=== PATIENT | female | born 1960 | race Caucasian/White ===

== ENCOUNTER 2017-01-06 16:51 | Observation (INO) ==
--- NOTE | 2017-01-06 17:17 | Emergency Department Note ---
Disposition Clinical Impression: Thyroid nodule Carotid stenosis Qualifiers: Laterality: bilateral Qualified Code(s): I65.23 - Occlusion and stenosis of bilateral carotid arteries TIA (transient ischemic attack) Qualifiers: Transient cerebral ischemia type: unspecified Qualified Code(s): G45.9 - Transient cerebral ischemic attack, unspecified Disposition: Admitted As Inpatient Condition: Good Referrals: Casey Rubio DO [Primary Care Provider] - Forms: ED Satisfaction Letter Time of Disposition: 18:50 Neuro HPI - General Chief Complaint: ED Neuro Symptoms/Deficit Stated Complaint: Bi-lateral caroid artery blockage Time Seen by Provider: 01/06/17 17:06 Source: patient Mode of arrival: ambulatory Limitations: no limitations Nursing Notes Reviewed: Yes Vital Signs Reviewed: Yes - History of Present Illness HPI Narrative: 56-year-old female whose had numbness to the left side of her body for about 4 months. States about a month ago she had an episode where she had weakness of the left side felt like she was going to pass out. She had a second episode 2 days ago. The patient was sent for a arterial Doppler which showed a complete occlusion of the right carotid artery it shows to 79% stenosis of the bifurcation proximal internal carotid distal internal carotid, it also shows an 80-99% stenosis of the mid internal carotid artery on the left. Onset of Symptoms Date: 10/06/16 Timing confirmed by: family member Location: right face, right arm, right leg Quality: weakness, numbness Improves with: none Worsens with: none Treatments Prior to Arrival: none - Related Data Home Medications: Home Medications Medication Instructions Recorded Confirmed Cholecalciferol (Vitamin D3) 1,000 unit PO BID 02/17/15 05/29/16 [Vitamin D] GlipiZIDE XL (24 HR) [Glucotrol XL] 20 mg PO 0800 02/17/15 05/29/16 Lisinopril [Zestril] 10 mg PO DAILY 02/17/15 05/29/16 Metoprolol [Lopressor] 50 mg PO BID 02/17/15 05/29/16 Rosuvastatin [Crestor] 40 mg PO HS 02/17/15 05/29/16 SitaGLIPtin [Januvia] 25 mg PO DAILY 05/29/16 05/29/16 Aspirin [Lo-Dose Aspirin EC] 81 mg PO 12/18/16 12/18/16 Previous Rx's Medication Instructions Recorded Benzonatate [Tessalon] 100 mg PO TID #15 capsule 12/18/16 Cefdinir [Omnicef] 300 mg PO BID #20 capsule 12/18/16 Fluticasone Propionate Nasal 120 spray NS DAILY #1 bottle 12/18/16 [Flonase] Allergies/Adverse Reactions: Allergies Allergy/AdvReac Type Severity Reaction Status Date / Time atorvastatin [From Lipitor] AdvReac Back Pain Verified 12/18/16 11:03 metformin AdvReac Diarrhea Verified 12/18/16 11:03 All systems ED: reviewed and negative except as stated. Constitutional: Denies: fever, chills, weakness, weight change Eyes: Denies: eye pain, eye discharge, vision change ENT ED: Denies: ear pain, throat pain, dental pain, hearing loss, epistaxis, congestion, dysphagia Cardiovascular: Denies: chest pain, palpitations, dyspnea on exertion, edema, syncope Respiratory: Denies: cough, dyspnea, wheezes, hemoptysis, stridor Gastrointestinal: Denies: abdominal pain, nausea, vomiting, diarrhea, constipation, hematemesis, melena, hematochezia Genitourinary: Denies: dysuria, frequency, hematuria, discharge Musculoskeletal: Denies: back pain, neck pain, arthralgia, myalgia Integumentary: Denies: rash, abrasion, lesions Neurological: Reports: weakness. Denies: headache, numbness, paresthesias, confusion, abnormal gait, vertigo Psychiatric: Denies: anxiety, depression, suicidal thoughts, homicidal thoughts , auditory hallucinations, visual hallucinations Endocrine: Denies: fatigue Hematological/Lymphatic: Denies: easy bleeding, easy bruising Allergic/Immunologic: Denies: facial swelling, urticaria Past Medical History - Past Medical History Medical history: Reports: diabetes, hyperlipidemia, hypertension Surgical history: Reports: appendectomy, cholecystectomy, JOÃO/BSO Psychiatric history: Reports: no psych history [employer] history: Reports: bilateral tubal ligation - Social History Smoking Status: Current every day smoker Smokeless Tobacco Status: No Alcohol use: Reports: none Drug use: Reports: none Physical Exam - General Limitations: no limitations General appearance: alert - Head Head exam: atraumatic, normocephalic, normal inspection - Eye Eye exam: Present: normal appearance, PERRL, EOMI - ENT ENT exam: normal exam, normal oropharynx, mucous membranes moist - Neck Neck exam: Present: normal inspection, full ROM, trachea midline - Chest Chest inspection: Present: normal inspection, symmetric chest wall rise - Respiratory Respiratory exam: Present: normal lung sounds bilaterally - Cardiovascular Cardiovascular exam: Present: regular rate, normal rhythm, normal heart sounds - Abdominal Exam Abdominal exam: Present: soft, Non-Tender. Absent: tenderness, distention, guarding, rebound, rigidity - Extremities Exam Extremities exam: Present: normal inspection - Expanded Lower Extremity Exam Neurovascular/Tendon exam: Present: sensory deficit. Absent: motor deficit, tendon deficit Gait: not tested/not observed - Back Exam Back exam: Present: normal inspection, full ROM. Absent: tenderness - Neurological Exam Neurological exam: Present: alert, oriented X3 - Psychiatric Psychiatric exam: Present: normal affect, normal mood - Skin Skin exam: Present: warm, dry, intact, normal color Course - Consultations Consultation #1: Discussed with , request a CTA of the neck and will see the patient in consult. Time: 17:24 Consultation #2: Discussed with Time: 19:41 Vital Signs Temperature 98.5 F 01/06/17 16:56 Pulse Rate 96 01/06/17 16:56 Respiratory Rate 16 01/06/17 16:56 Blood Pressure 157/82 01/06/17 16:56 O2 Sat by Pulse Oximetry 95 01/06/17 16:56 Temperature 98.5 F 01/06/17 16:56 Pulse Rate 96 01/06/17 19:33 Respiratory Rate 18 01/06/17 19:33 Blood Pressure 152/80 01/06/17 19:33 O2 Sat by Pulse Oximetry 98 01/06/17 19:33 Oxygen Delivery Oxygen Delivery Room Air Neuro Symptoms/Deficit - Lab Data Result diagrams: 01/06/17 17:30 01/06/17 17:30 Lab Results 01/06/17 01/06/17 01/06/17 Range/Units 17:30 17:30 17:30 WBC 11.5 H (4.3-11.1) K/mcL RBC 5.08 H (3.82-4.97) M/mcL Hgb 15.2 (11.5-15.4) g/dL Hct 46.1 H (35.3-44.9) % MCV 90.7 (83.0-100.0) fL MCH 29.9 (28.0-33.3) pg MCHC 33.0 (31.6-35.5) g/dL RDW 12.5 (11.5-14.5) % Plt Count 280 (140-400) K/mcL MPV 10.9 (9.4-12.4) fL Immature Gran % 0.3 (0-4) % Seg Neutrophils % 60.8 % Lymphocytes % 30.6 % Monocytes % 5.4 % Eosinophils % 2.4 % Basophils % 0.5 % Neutrophils # 7.0 (1.6-8.9) K/mcL Lymphocytes # 3.5 (0.6-4.6) K/mcL Monocytes # 0.6 (0.0-1.3) K/mcL Eosinophils # 0.3 (0.0-0.6) K/mcL Basophils # 0.1 (0.0-0.2) K/mcL PT 11.7 (9.4-12.1) Seconds INR 1.1 APTT 34.7 (26.0-36.0) Seconds Sodium 138 (136-145) mEq/L Potassium 4.0 (3.5-4.5) mEq/L Chloride 104 (98-109) mEq/L Carbon Dioxide 25 (19-29) mEq/L BUN 15 (7-20) mg/dL Creatinine 1.04 (0.57-1.11) mg/dL Est GFR ( Amer) > 60 (> 60) Est GFR (Non-Af Amer) 54 L (> 60) BUN/Creatinine Ratio 14 (6-26) Glucose 264 H (70-99) mg/dL Calculated Osmolality 296 (280-300) Calcium 12.3 H (8.6-10.8) mg/dL Troponin I (0-0.03) ng/mL 01/06/17 Range/Units 17:30 WBC (4.3-11.1) K/mcL RBC (3.82-4.97) M/mcL Hgb (11.5-15.4) g/dL Hct (35.3-44.9) % MCV (83.0-100.0) fL MCH (28.0-33.3) pg MCHC (31.6-35.5) g/dL RDW (11.5-14.5) % Plt Count (140-400) K/mcL MPV (9.4-12.4) fL Immature Gran % (0-4) % Seg Neutrophils % % Lymphocytes % % Monocytes % % Eosinophils % % Basophils % % Neutrophils # (1.6-8.9) K/mcL Lymphocytes # (0.6-4.6) K/mcL Monocytes # (0.0-1.3) K/mcL Eosinophils # (0.0-0.6) K/mcL Basophils # (0.0-0.2) K/mcL PT (9.4-12.1) Seconds INR APTT (26.0-36.0) Seconds Sodium (136-145) mEq/L Potassium (3.5-4.5) mEq/L Chloride (98-109) mEq/L Carbon Dioxide (19-29) mEq/L BUN (7-20) mg/dL Creatinine (0.57-1.11) mg/dL Est GFR ( Amer) (> 60) Est GFR (Non-Af Amer) (> 60) BUN/Creatinine Ratio (6-26) Glucose (70-99) mg/dL Calculated Osmolality (280-300) Calcium (8.6-10.8) mg/dL Troponin I 0.01 (0-0.03) ng/mL NIH Stroke Scale - Level of Consciousness LOC: Alert - LOC Questions LOC Questions: Answers both correctly - LOC Commands LOC Commands: Performs both correctly - Best Gaze Best Gaze: Normal - Visual Visual: No visual loss - Facial Palsy Facial Palsy: Normal - Motor Arms Motor Arm-Left: No drift for 10 seconds Motor Arm-Right: No drift for 10 seconds - Motor Legs Motor Leg-Left: No drift for 5 seconds Motor Leg-Right: No drift for 5 seconds - Limb Ataxia Limb Ataxia: Normal, No Ataxia - Sensory Sensory: Mild to moderate loss, "not as sharp" - Best Language Best Language: No aphasia - Dysarthria Dysarthria: Normal - Extinction and Inattention Extinction and Inattention: Normal - NIHSS Total Score NIHSS Total Score: 1 TPA Checklist - Eligibilty for IV tPA 1. LKW equal to or less than 4.5 hours be before treatment: No - LKW: 3-4.5 hrs Add. Warnings/Precautions Patient/family understanding: The patient/family members have been counseled and understood the risk, benefit , and alternatives of treatment.
[2017-01-06 17:42] LABS: Basophils # 0.1 K/mcL (0.0-0.2); Basophils % 0.5 %; Eosinophils # 0.3 K/mcL (0.0-0.6); Eosinophils % 2.4 %; Hematocrit 46.1 % (35.3-44.9); Hemoglobin 15.2 g/dL (11.5-15.4); Immature Granulocytes % 0.3 % (0-4); Lymphocytes # 3.5 K/mcL (0.6-4.6); Lymphocytes % 30.6 %; Mean Corpuscular Hemoglobin 29.9 pg (28.0-33.3); Mean Corpuscular Volume 90.7 fL (83.0-100.0); Mean Platelet Volume 10.9 fL (9.4-12.4); Monocytes # 0.6 K/mcL (0.0-1.3); Monocytes % 5.4 %; Platelet Count 280 K/mcL (140-400); Red Blood Count 5.08 M/mcL (3.82-4.97); Red Cell Distribution Width 12.5 % (11.5-14.5); Segmented Neutrophils % 60.8 %
[2017-01-06 17:52] LABS: INR 1.1; Prothrombin Time 11.7 Seconds (9.4-12.1)
[2017-01-06 17:55] LABS: Activated Partial Thrombo Time 34.7 Seconds (26.0-36.0); BUN/Creatinine Ratio 14 (6-26); Blood Urea Nitrogen 15 mg/dL (7-20); Calcium 12.3 mg/dL (8.6-10.8); Carbon Dioxide 25 mEq/L (19-29); Chloride 104 mEq/L (98-109); Glucose 264 mg/dL (70-99); Osmolality,Calculated 296 (280-300); Sodium 138 mEq/L (136-145); eGFR For African Americans > 60 (> 60); eGFR For Non-African Americans 54 (> 60)
[2017-01-06] MEDS ORDERED: Acetaminophen 325 MG TABLET PO PRN (21:03)
[2017-01-06] MEDS ORDERED: Naloxone 0.4 MG/ML INJ IVP PRN (21:03)
[2017-01-06] MEDS ORDERED: Loratadine 10 MG TABLET PO PRN (21:08)
--- NOTE | 2017-01-06 21:30 | Internal Med History&Physical ---
<Emily Cm M - Last Filed: 01/06/17 21:28> Date of Encounter: 01/06/17 Time of Encounter: 21:30 Assessment and Plan (1) TIA (transient ischemic attack) Current visit: Yes Status: Acute Patient reports episodes of left sided numbness and weakness on and off for the last 3-4 months. She was found to have complete occlusion of the right common carotid artery on doppler and CTA today. MRI head and brain without contrast continuous cardiac care nurse Vascular surgery consulted. NPO for possible surgical intervention. Qualifiers: Transient cerebral ischemia type: carotid artery syndrome (hemispheric) Qualified Code(s): G45.1 - Carotid artery syndrome (hemispheric) (2) Carotid stenosis Current visit: Yes Status: Acute Patient found on doppler and CTA to have complete occlusion of the right common carotid artery and the right internal carotid is occluded throughout course as well. The left internal carotid artery has 50% stenosis. Vascular surgery has been consulted and plans to see patient tomorrow. NPO for possible surgical intervention. Qualifiers: Laterality: bilateral Qualified Code(s): I65.23 - Occlusion and stenosis of bilateral carotid arteries (3) Type 2 diabetes mellitus Current visit: Yes Status: Acute check Hgb A1c patient is NPO check blood sugars Q6hr sliding scale correction dose Qhr hypoglycemic protocol. Qualifiers: Diabetes mellitus complication status: with unspecified complications Diabetes mellitus oysterman insulin use: without residential use Qualified Code( s): E11.8 - Type 2 diabetes mellitus with unspecified complications (4) Hypertension Current visit: Yes Status: Acute Continue home dose of metoprolol and lisinopril. Qualifiers: Hypertension type: essential hypertension Qualified Code(s): I10 - Essential (primary) hypertension (5) COPD (chronic obstructive pulmonary disease) Current visit: Yes Status: Acute Patient reports history of COPD. She has scattered mild wheezes on exam. CXR shows no acute cardiopulmonary findings. Duoneb treatments QID PRN. Qualifiers: COPD type: unspecified COPD Qualified Code(s): J44.9 - Chronic obstructive pulmonary disease, unspecified (6) Thyroid nodule Current visit: Yes Status: Acute Thyroid nodule found incidentally on Neck CTA. Will check TSH with morning labs and plan outpatient followup. (7) DVT prophylaxis Current visit: Yes Status: Acute sequential compression devices. Internal Medicine - H&P: HPI Chief complaint: left sided numbness Admitted From: Emergency Dept Plans for Post Hospital Care: Home History of present illness: Ms. Prieto is a 56 year old female with hypertension, hyperlipidemia, COPD, type 2 diabetes who was sent to the ED today after carotid doppler revealed complete occlusion of the right common carotid artery. She reports she has been having left sided facial numbness, with tongue numbess and left arm and leg numbness on and off for 3-4 months now. These episodes occur once or twice a week and last at maximum 20 minutes. Her last episode was yesterday and lasted 20 minutes. She also reports lightheadedness, headache, chest pressure and shortness of breath during these episodes. She denies any nausea or vomiting, blurred vision. Evaluation in the ED included a neck CTA which showed complete occlusion of the right common carotid artery, and the right internal carotid is occluded throughout its course, the let internal carotid has 50% stenosis. Head CT showed no acute intracranial abnormality. Troponin was negative at 0.01. She was hyperglycemic with blood sugar of 264. On exam, patient was alert and oriented, in no distress. She was neurologically intact with no focal deficits. Heart had regular rate and rhythm and lungs had mild scattered wheezes. No peripheral edema. Past Med Surg Social Fam HX - Past Medical History Medical history: diabetes, hyperlipidemia, hypertension, kidney stones Psychiatric history: no psych history - Past Surgical History Surgical History: appendectomy, cholecystectomy, JOÃO/BSO - Social History Smoking Status: Current every day smoker Smokeless Tobacco Status: No Alcohol use: none Drug use: none - Family History Grandmother Hx Family Cardiac Disorders: Yes (unsure) Father Living Status: Cause of : cancer Hx Family Cancer: Yes Sister Living Status: Cause of : COPD Hx Family Respiratory Disorders: Yes (COPD) Internal Medicine - H&P: Meds Rosuvastatin [Crestor] 40 mg PO HS 02/17/15 [History] Aspirin [Lo-Dose Aspirin EC] 81 mg PO DAILY 12/18/16 [History] Gabapentin [Neurontin] 600 mg PO TID 01/06/17 [History] Glimepiride [Amaryl] 8 mg PO QAM 01/06/17 [History] Lisinopril [Zestril] 40 mg PO DAILY 01/06/17 [History] Loratadine [Claritin] 10 mg PO DAILY PRN 01/06/17 [History] Metoprolol XL (24 HR) Succ [Toprol XL] 25 mg PO BID 01/06/17 [History] SitaGLIPtin [Januvia] 100 mg PO DAILY 01/06/17 [History] 3 Allergy/AdvReac Type Severity Reaction Status Date / Time atorvastatin [From Lipitor] AdvReac Back Pain Verified 12/18/16 11:03 metformin AdvReac Diarrhea Verified 12/18/16 11:03 All Systems PM: A 10-system review of systems was performed and is negative for pertinent findings except as documented above in the HPI. - Constitutional Constitutional: no chills, no fever(s), no night sweats - EENT Eyes: no change in vision, no discharge, no pain, no photophobia Ears: no ear discharge, no ear pain, no tinnitus Nose, mouth and throat: no dysphagia, no nasal discharge, no neck pain, no sore throat - Cardiovascular Cardiovascular ROS IM: chest pain, dyspnea, lightheadedness, no diaphoresis, no palpitations, no syncope - Respiratory Respiratory: cough, dyspnea, no wheezing, no excessive phlegm production - Gastrointestinal Gastrointestinal: no abdominal pain, no diarrhea, no hematemesis, no hematochezia, no melena, no nausea, no vomiting - Genitourinary Genitourinary: no change in urinary stream, no dysuria, no flank pain, no hematuria - Musculoskeletal Musculoskeletal ROS IM: numbness (intermittent left sided), no tingling - Integumentary Integumentary IM: no rash, no unusual bruising - Neurological Neurological ROS: focal weakness (intermittent left sided), numbness ( intermittent left sided.), no confusion, no convulsions, no tingling, no tremor( s) - Hematologic/Lymphatic Hematologic/Lymphatic: no easy bruising - Constitutional Vitals: Temp Pulse Resp BP Pulse Ox 98.2 F 72 16 152/67 98 01/06/17 20:34 01/06/17 21:07 01/06/17 20:34 01/06/17 20:34 01/06/17 20:34 General appearance: Present: A&O X 3, pleasant, no acute distress - Head Head exam: Present: atraumatic, normocephalic - Eye Eye exam: Present: PERRL, conjuntiva pink, sclera anicteric Pupils: Present: PERRL - Neck Neck exam general surgery: Present: supple, trachea midline. Absent: lymphadenopathy - Respiratory Respiratory exam: Present: CTAB, wheezes (scattered bilateral). Absent: accessory muscle use, rales, rhonchi - Cardiovascular Cardiovascular exam: Present: RRR, +S1, +S2. Absent: diastolic murmur, gallop, rubs, systolic murmur - GI/Abdominal GI/Abdominal exam: Present: normal bowel sounds, soft, no peritoneal signs. Absent: distended, tenderness - Extremities Exam Extremities exam: Present: warm, radial pulses palpable and symmetrical. Absent : calf tenderness, cyanotic, pedal edema - Neurological Exam Neurological exam: Present: CN II-XII intact, oriented X3, no focal deficits. Absent: pronater drift, facial droop, speech deficit - Expanded Neurological Exam Speech: Present: fluid speech Cranial Nerves: EOM's intact PM: Normal, gag reflex PM: Normal, nystagmus PM: Normal, tongue deviation PM: Normal Neuro motor strength exam: LUE: 5, RUE: 5, LLE: 5, RLE: 5 - Skin Skin exam: Present: dry, intact Internal Med - H&P Results - Labs CBC & Chem 7: 01/06/17 17:30 01/06/17 17:30 Labs: All Lab Results (24 Hours) 01/06/17 01/06/17 01/06/17 Range/Units 17:30 17:30 17:30 WBC 11.5 H (4.3-11.1) K/mcL RBC 5.08 H (3.82-4.97) M/mcL Hgb 15.2 (11.5-15.4) g/dL Hct 46.1 H (35.3-44.9) % MCV 90.7 (83.0-100.0) fL MCH 29.9 (28.0-33.3) pg MCHC 33.0 (31.6-35.5) g/dL RDW 12.5 (11.5-14.5) % Plt Count 280 (140-400) K/mcL MPV 10.9 (9.4-12.4) fL Immature Gran % 0.3 (0-4) % Seg Neutrophils % 60.8 % Lymphocytes % 30.6 % Monocytes % 5.4 % Eosinophils % 2.4 % Basophils % 0.5 % Neutrophils # 7.0 (1.6-8.9) K/mcL Lymphocytes # 3.5 (0.6-4.6) K/mcL Monocytes # 0.6 (0.0-1.3) K/mcL Eosinophils # 0.3 (0.0-0.6) K/mcL Basophils # 0.1 (0.0-0.2) K/mcL PT 11.7 (9.4-12.1) Seconds INR 1.1 APTT 34.7 (26.0-36.0) Seconds Sodium 138 (136-145) mEq/L Potassium 4.0 (3.5-4.5) mEq/L Chloride 104 (98-109) mEq/L Carbon Dioxide 25 (19-29) mEq/L BUN 15 (7-20) mg/dL Creatinine 1.04 (0.57-1.11) mg/dL Est GFR ( Amer) > 60 (> 60) Est GFR (Non-Af Amer) 54 L (> 60) BUN/Creatinine Ratio 14 (6-26) Glucose 264 H (70-99) mg/dL Calculated Osmolality 296 (280-300) Calcium 12.3 H (8.6-10.8) mg/dL Troponin I (0-0.03) ng/mL 01/06/17 Range/Units 17:30 WBC (4.3-11.1) K/mcL RBC (3.82-4.97) M/mcL Hgb (11.5-15.4) g/dL Hct (35.3-44.9) % MCV (83.0-100.0) fL MCH (28.0-33.3) pg MCHC (31.6-35.5) g/dL RDW (11.5-14.5) % Plt Count (140-400) K/mcL MPV (9.4-12.4) fL Immature Gran % (0-4) % Seg Neutrophils % % Lymphocytes % % Monocytes % % Eosinophils % % Basophils % % Neutrophils # (1.6-8.9) K/mcL Lymphocytes # (0.6-4.6) K/mcL Monocytes # (0.0-1.3) K/mcL Eosinophils # (0.0-0.6) K/mcL Basophils # (0.0-0.2) K/mcL PT (9.4-12.1) Seconds INR APTT (26.0-36.0) Seconds Sodium (136-145) mEq/L Potassium (3.5-4.5) mEq/L Chloride (98-109) mEq/L Carbon Dioxide (19-29) mEq/L BUN (7-20) mg/dL Creatinine (0.57-1.11) mg/dL Est GFR ( Amer) (> 60) Est GFR (Non-Af Amer) (> 60) BUN/Creatinine Ratio (6-26) Glucose (70-99) mg/dL Calculated Osmolality (280-300) Calcium (8.6-10.8) mg/dL Troponin I 0.01 (0-0.03) ng/mL - Diagnostic Studies CT scan - head Additional comments: Head CT 01/06/17 17:14 IMPRESSION: 1. No acute intracranial abnormality. 2. Right maxillary and bilateral sphenoid sinusitis. D/ / Juan José Jensen MD / Jua nJosé Jensen MD Interpreting Provider: Juan José Jensen MD Chest x-ray Additional comments: Chest X-Ray 01/06/17 17:13 IMPRESSION: No acute cardiopulmonary findings. D/ / 01/06/2017 18:21:58 Fuentes Mckeon MD / [facility] Interpreting Provider: Fuentes Mckeon MD Other Images Additional comments: Neck CTA 01/06/17 17:20 IMPRESSION: Complete occlusion of the right common carotid artery just distal to the origin from the innominate artery. The right internal carotid artery is occluded throughout its visualized course. There is approximately 50% stenosis of the left internal carotid artery in the region of the bulb. Heterogeneity and enlargement of the left lobe of the thyroid which is likely related to a goiter. There are two small nodules in the left enlarged lobe of the thyroid, for which ultrasound could further evaluate. D/ / 01/06/2017 19:04:37 Gertrudis Woodward MD / [facility] Interpreting Provider: Gertrudis Woodward MD <Taylor Pastrana - Last Filed: 01/07/17 04:13> Date of Encounter: 01/07/17 Internal Medicine - H&P: HPI History of present illness: Ms. Prieto is a 56 year old female All Systems PM: A 10-system review of systems was performed and is negative for pertinent findings except as documented above in the HPI. - Constitutional Vitals: Temp Pulse Resp BP Pulse Ox 98.0 F 67 18 152/64 98 01/07/17 04:01 01/07/17 04:01 01/07/17 04:01 01/07/17 04:01 01/07/17 04:01 Internal Med - H&P Results - Labs CBC & Chem 7: 01/06/17 17:30 01/06/17 17:30 - Attending Attestation I have personally performed a face to face evaluation on this patient and I discussed the assessment and plan with the nurse practitioner. I have reviewed and agree with the documented care plan. History and Exam by me shows: Ms. Prieto is a 56 year old female with hypertension, hyperlipidemia, COPD, type 2 diabetes who was sent to the ED today after carotid doppler revealed complete occlusion of the right common carotid artery. She reports she has been having left sided facial numbness, with tongue numbess and left arm and leg numbness on and off for 3-4 months now. These episodes occur once or twice a week and last at maximum 20 minutes. Her last episode was yesterday and lasted 20 minutes. She also reports lightheadedness, headache, chest pressure and shortness of breath during these episodes. She denies any nausea or vomiting, blurred vision. Evaluation in the ED included a neck CTA which showed complete occlusion of the right common carotid artery, and the right internal carotid is occluded throughout its course, the let internal carotid has 50% stenosis. Head CT showed no acute intracranial abnormality. Pt denied any more Left side weakness at this moment Gen: A, A, O x 3 Chest : Diminished BS b/l basal region, no crackles, no rales Heart: S1 S2 + RRR No murmurs a/p 1. Acute and recurrent left side weakness 2. Complete occlusion of RCA MRI of brain - no acute CVA May need carotid endarterectomy Vascular surgery consulted Keep NPO until surgeon eval check FLP In AM since pt is already on ASA..will add plavix 75mg daily
[2017-01-06] MEDS ORDERED: *HR* Dextrose 50 % in Water (Syg) 50 ML SYRINGE IVP PRN (21:43)
[2017-01-06] MEDS ORDERED: D5% in Water 1,000 ML IVC PRN (21:43)
[2017-01-06] MEDS ORDERED: Dextrose Gel 15 GM PO PRN ×2 (21:43)
[2017-01-06] MEDS ORDERED: Ipratropium/Albuterol Neb 3 ML IH PRN (21:46)
[2017-01-06] MEDS: Nicotine 14 MG PATCH.TD24 TD SCH (22:15)
[2017-01-06 22:21] LABS: Hemoglobin A1C 7.8 %
[2017-01-07] MEDS: Insulin LISPRO 300 UNITS/3 ML VIAL SQ SCH ×2 (00:29→06:19)
[2017-01-07 05:55] LABS: Basophils # 0.1 K/mcL (0.0-0.2); Basophils % 0.6 %; Eosinophils # 0.4 K/mcL (0.0-0.6); Eosinophils % 4.6 %; Hematocrit 41.9 % (35.3-44.9); Immature Granulocytes % 0.5 % (0-4); Lymphocytes # 3.2 K/mcL (0.6-4.6); Lymphocytes % 38.7 %; Mean Corpuscular HGB Conc 32.2 g/dL (31.6-35.5); Mean Corpuscular Hemoglobin 29.5 pg (28.0-33.3); Mean Corpuscular Volume 91.7 fL (83.0-100.0); Mean Platelet Volume 11.1 fL (9.4-12.4); Monocytes # 0.6 K/mcL (0.0-1.3); Monocytes % 6.9 %; Neutrophils # 4.1 K/mcL (1.6-8.9); Platelet Count 241 K/mcL (140-400); Red Blood Count 4.57 M/mcL (3.82-4.97); Red Cell Distribution Width 12.6 % (11.5-14.5); Segmented Neutrophils % 48.7 %
[2017-01-07 05:56] LABS: Hemoglobin 13.5 g/dL (11.5-15.4)
[2017-01-07 06:18] LABS: BUN/Creatinine Ratio 16 (6-26); Blood Urea Nitrogen 13 mg/dL (7-20); Calcium 10.8 mg/dL (8.6-10.8); Carbon Dioxide 26 mEq/L (19-29); Chloride 109 mEq/L (98-109); Chol/HDL Ratio 5.3 (0-4.9); Cholesterol 132 mg/dL (< 200); Glucose 129 mg/dL (70-99); HDL Cholesterol 25 mg/dL (40-59); LDL Cholesterol,Calculated 81 mg/dL (0-99); Osmolality,Calculated 292 (280-300); Potassium 3.9 mEq/L (3.5-4.5); Sodium 140 mEq/L (136-145); Triglycerides 130 mg/dL (< 150); eGFR For African Americans > 60 (> 60); eGFR For Non-African Americans > 60 (> 60)
[2017-01-07 06:24] LABS: Thyroid Stimulating Hormone 2.212 mcIU/mL (0.350-4.840)
[2017-01-07] MEDS: Nicotine 14 MG PATCH.TD24 TD SCH ×2 (08:26→08:28)
--- NOTE | 2017-01-07 08:38 | Vascular/Endovasc Consult Note ---
Date of Encounter: 01/07/17 Time of Encounter: 08:35 Assessment and Plan (1) Tobacco abuse Current Visit: Yes Status: Chronic Patient needs immediate tobacco cessation. Primary service will be asked to assist the patient with either nicotine patches or Chantix for tobacco abuse control. (2) Carotid stenosis Current Visit: Yes Status: Acute Probable subacute right carotid artery occlusion in October. Patient is had waxing and waning neurologic symptoms due to decreased flow. The left internal carotid artery velocity elevations suggesting the 80-99% stenosis are most likely due to increased compensatory flow from the left carotid system into the right cerebral hemisphere via the [place]. I have reviewed these images and I do not recommend a left carotid endarterectomy at this time. I explained to the patient how risk factor reduction was crucial to her health in survival. I recommended that she return in 6 months with a follow-up carotid artery duplex scan to my office. It was explained to the patient that the right carotid system is occluded and no surgery is indicated or feasible for this lesion. The left carotid surgery will be reserved for the patient having either intractable symptoms or significant exacerbation of her stenosis. Recommend institution of Plavix therapy at 75 mg a day. Recommend increasing his statin agent therapy for maximum impact Qualifiers: Laterality: bilateral Qualified Code(s): I65.23 - Occlusion and stenosis of bilateral carotid arteries (3) Type 2 diabetes mellitus Current Visit: Yes Status: Chronic Diabetic control is critical to her long-term survival. Qualifiers: Diabetes mellitus complication status: with circulatory complication Diabetes mellitus complication detail: with peripheral angiopathy without gangrene Diabetes mellitus nursing home insulin use: without funding coordinator use Qualified Code(s): E11.51 - Type 2 diabetes mellitus with diabetic peripheral angiopathy without gangrene (4) Hypertension Current Visit: Yes Status: Chronic Hypertension control is critical to her long-term survival. Qualifiers: Hypertension type: essential hypertension Qualified Code(s): I10 - Essential (primary) hypertension - History of Present Illness Consult date: 01/07/17 Requesting physician: Ruperto Merida Consult reason: TIAs and abnormal carotid duplex scan Chief complaint: Left sided numbness History of present illness: Ms. Prieto is a 56 year old female We was admitted via the emergency room last night. The patient had an episode approximately 2 days prior to admission of numbness and tingling involving her left face and tongue and left arm and left leg. She denied any loss of consciousness or visual changes. There is no seizure activity. She had no right- sided symptoms. There is no paralysis involved with this event. The patient states that in mid October she had onset of the symptoms. The symptoms began as left sided numbness and tingling of the upper extremity and lower extremity. This would happen intermittently and could be many weeks between episodes. She had had no previous symptoms. She had no previous evaluation of her carotid system or brain. The patient has 1 aunt who had a history of stroke. There is a very strong history of cardiac disease. The patient had described the symptoms to her primary care physician weren't ordered a cardiac stress test. This was being performed yesterday but was interrupted due to her symptoms and this study apparently was not completed. She was then sent to the emergency room here and [place]. A carotid duplex scan was performed. This demonstrated an occluded right common carotid and right internal carotid artery. Elevated velocities were discovered in the left internal carotid artery with a suggestion of an 80-99% stenosis. This then led to a CT angiogram of the neck. I reviewed both of these studies personally. The CT angiogram demonstrates an approximate 50% stenosis of the left internal carotid artery in its proximal portion. It does confirm occlusion of the right common carotid and right internal carotid arteries. The right external carotid artery remains patent. The vertebral arteries are patent with antegrade flow bilaterally. Past Med Surg Social Fam HX - Past Medical History Medical history: diabetes, hyperlipidemia, hypertension, kidney stones Psychiatric history: no psych history - Past Surgical History Surgical History: appendectomy, cholecystectomy, JOÃO/BSO - Social History Smoking Status: Current every day smoker Smokeless Tobacco Status: No Alcohol use: none Drug use: none - Family History Grandmother Hx Family Cardiac Disorders: Yes (unsure) Father Living Status: Cause of : cancer Hx Family Cancer: Yes Sister Living Status: Cause of : COPD Hx Family Respiratory Disorders: Yes (COPD) Medications and Allergies Rosuvastatin [Crestor] 40 mg PO HS 02/17/15 [History] Aspirin [Lo-Dose Aspirin EC] 81 mg PO DAILY 12/18/16 [History] Gabapentin [Neurontin] 600 mg PO TID 01/06/17 [History] Glimepiride [Amaryl] 8 mg PO QAM 01/06/17 [History] Lisinopril [Zestril] 40 mg PO DAILY 01/06/17 [History] Loratadine [Claritin] 10 mg PO DAILY PRN 01/06/17 [History] Metoprolol XL (24 HR) Succ [Toprol XL] 25 mg PO BID 01/06/17 [History] SitaGLIPtin [Januvia] 100 mg PO DAILY 01/06/17 [History] 3 Allergy/AdvReac Type Severity Reaction Status Date / Time atorvastatin [From Lipitor] AdvReac Back Pain Verified 12/18/16 11:03 metformin AdvReac Diarrhea Verified 12/18/16 11:03 All Systems Review: A 10-system review of systems was performed and is negative for pertinent findings except as documented above in the HPI. Exam Vital Signs, Last 4 Hours Temp Pulse Resp BP Pulse Ox 01/07/17 08:30 75 175/75 01/07/17 07:58 97.9 F 72 16 175/75 95 01/07/17 07:39 62 General: Present: Conversant, No Apparent Distress, Well developed, Well nourished HEENT: Present: Atraumatic, Normocephaly, Trachea midline Neck: Present: Right Carotid bruit, Thyromegaly. Absent: JVD, Left Carotid bruit, Midline deformity, Tracheal deviation Cardiac: Present: Reg Rate and Rhythm, Normal S1 and S2, Other (Positive S4) Lungs: Present: Normal Breath Sounds Neuro: Present: Alert and responsive, No focal deficits noted, Cranial nerves grossly intact Abdomen: Present: Soft Vascular: Present: Normal capillary refill, Pulse, absent (No right carotid pulse) Skin: Present: No rashes noted on visualized skin Consult Discharge Plan - Plan Referrals: Casey Rubio DO [Primary Care Provider] - Lisandro Tate MD [Partnered Physician] - (Patient to follow-up with Dr. Tate in 6 months. Patient is to have a carotid artery duplex scan prior to her follow-up visit.)
[2017-01-07] MEDS ORDERED: Aspirin Enteric Coated 81 MG Tablet PO SCH (09:00)
[2017-01-07] MEDS ORDERED: Metoprolol XL (24 HR) Succ 25 MG TAB.ER.24H PO SCH (09:00)
[2017-01-07] MEDS ORDERED: Gabapentin 300 MG CAPSULE PO SCH (09:00)
[2017-01-07] MEDS ORDERED: Lisinopril 20 MG TABLET PO SCH (09:00)
[2017-01-07 11:12] VITALS: BP 142/66
[2017-01-07] MEDS ORDERED: Insulin LISPRO 300 UNITS/3 ML VIAL SQ SCH ×2 (11:30→21:00)
--- NOTE | 2017-01-07 11:34 | Discharge Summary ---
Date of Encounter: 01/07/17 Time of Encounter: 10:00 - Discharge Diagnosis (1) Carotid stenosis Priority: Primary Status: Chronic Qualifiers: Laterality: bilateral Qualified Code(s): I65.23 - Occlusion and stenosis of bilateral carotid arteries (2) TIA (transient ischemic attack) Priority: Primary Status: Chronic Qualifiers: Transient cerebral ischemia type: carotid artery syndrome (hemispheric) Qualified Code(s): G45.1 - Carotid artery syndrome (hemispheric) (3) Thyroid nodule Priority: Secondary Status: Chronic (4) Type 2 diabetes mellitus Priority: Secondary Status: Chronic Qualifiers: Diabetes mellitus complication status: with circulatory complication Diabetes mellitus complication detail: with peripheral angiopathy without gangrene Diabetes mellitus trial lawyer insulin use: without trial lawyer use Qualified Code(s): E11.51 - Type 2 diabetes mellitus with diabetic peripheral angiopathy without gangrene (5) Hypertension Priority: Secondary Status: Chronic Qualifiers: Hypertension type: essential hypertension Qualified Code(s): I10 - Essential (primary) hypertension (6) COPD (chronic obstructive pulmonary disease) Priority: Secondary Status: Chronic Qualifiers: COPD type: unspecified COPD Qualified Code(s): J44.9 - Chronic obstructive pulmonary disease, unspecified (7) Tobacco abuse Priority: Secondary Status: Chronic - Discharge Medications Prescriptions: Clopidogrel [Plavix] 75 mg PO DAILY #30 tablet Home Medications: Rosuvastatin [Crestor] 40 mg PO HS 02/17/15 [History] Aspirin [Lo-Dose Aspirin EC] 81 mg PO DAILY 12/18/16 [History] Gabapentin [Neurontin] 600 mg PO TID 01/06/17 [History] Glimepiride [Amaryl] 8 mg PO QAM 01/06/17 [History] Lisinopril [Zestril] 40 mg PO DAILY 01/06/17 [History] Loratadine [Claritin] 10 mg PO DAILY PRN 01/06/17 [History] SitaGLIPtin [Januvia] 100 mg PO DAILY 01/06/17 [History] Clopidogrel [Plavix] 75 mg PO DAILY #30 tablet 01/07/17 [Rx] Metoprolol XL (24 HR) Succ [Toprol Xl] 50 mg PO BID #0 01/07/17 [Rx] Allergies/Adverse Reactions: 3 Allergy/AdvReac Type Severity Reaction Status Date / Time atorvastatin [From Lipitor] AdvReac Back Pain Verified 12/18/16 11:03 metformin AdvReac Diarrhea Verified 12/18/16 11:03 Procedures/tests Complete & Pending: Procedures Performed prior 72 hours Category Date Time Status MR head/brain wo con [MR] Routine MRI 01/06/17 21:09 Completed Date of admission: 01/06/17 19:51 Primary care physician: Casey Rubio DO Discharging clinician: Morena Shell Anticipated date of discharge: 01/07/17 - Patient Status Disposition: Home, Self-Care Condition: Good Functional capacity at discharge: independent ambulation Overall status at discharge: patient is progressing back to baseline - Discharge Instructions Instructions: Peripheral Vascular Disorders (DC) Follow Up With: Casey Rubio DO [Primary Care Provider] - 01/09/17 1:30 pm Lisandro Tate MD [Partnered Physician] - (Patient to follow-up with Dr. Tate in 6 months. Patient is to have a carotid artery duplex scan prior to her follow-up visit. The office will call patient with an appointment closer to the six months) Additional Instructions: F/up with PCP in 1-2 weeks F/up with in 6 months - Diet and Activity Activity: resume usual activities as tolerated Diet: diabetic diet, low fat, low cholesterol, low salt diet Hospital course: Ms. Prieto is a 56 year old female with the above medical problems, presenting with intermittent episodes of left-sided paresthesias and weakness. CT head and MRI brain done in the emergency room showed no evidence of acute stroke. CT angiogram of the neck showed evidence of complete occlusion of right internal carotid artery and 50% stenosis and left internal carotid artery. Vascular surgery was consulted for possible carotid endarterectomy, however after reviewing of imaging studies, recommended outpatient follow-up in 6 months for repeat imaging as current changes on CT are likely related to compensating increased flow on the left side rather than significant stenosis. Aggressive risk factor modification was discussed with the patient including smoking cessation, blood pressure controlled, dietary changes and tight blood glucose control and she verbalized understanding. She currently smokes about half pack of cigarettes per day and is motivated to cut down and quit smoking. Home dose of metoprolol is being increased for appropriate blood pressure control and she is advised to follow-up as outpatient for further monitoring. Time spent discussing smoking cessation with patient: 3 to 10 minutes - Time Spent with Patient Total time spent providing and/or coordinating discharge services: Greater than 30 minutes (45 min) - Constitutional Vitals: Temp Pulse Resp BP Pulse Ox 98.1 F 68 17 142/66 94 01/07/17 11:05 01/07/17 11:27 01/07/17 11:05 01/07/17 11:05 01/07/17 11:05 General appearance: Present: A&O X 3, obese, answers questions appropriately - Respiratory Respiratory exam: Present: CTAB. Absent: accessory muscle use, rales, rhonchi, wheezes - Cardiovascular Cardiovascular exam: Present: RRR, +S1, +S2. Absent: diastolic murmur, gallop, rubs, systolic murmur
[2017-01-07] MEDS ORDERED: FLUARIX QUAD 2017-18 36MOS UP/PF 0.5 ML SYRINGE IM ONE (12:03)
== END 2017-01-07 12:32 | disposition home or self-care (01) ==
LOC: EMEROO 16:51 → 2NNU 16:51
PROVIDERS: ADMIT Internal Medicine; ATTEND Internal Medicine

== ENCOUNTER 2017-02-08 18:00 | Inpatient (IN) ==
--- NOTE | 2017-02-08 18:14 | Emergency Department Note ---
Disposition Clinical Impression: Chest pain Qualifiers: Chest pain type: unspecified Qualified Code(s): R07.9 - Chest pain, unspecified Disposition: Admitted As Inpatient Condition: Fair Referrals: Casey Rubio DO [Primary Care Provider] - Time of Disposition: 19:22 Chest Pain HPI - General Stated Complaint: chest pain, right arm numbness Time Seen by Provider: 02/08/17 18:04 Source: patient Mode of arrival: ambulatory Limitations: no limitations Vital Signs Reviewed: Yes Nursing Notes Reviewed: Yes - History of Present Illness HPI Narrative: 56-year-old who states she developed chest pain earlier today she's had it off and on seems to be more with exertion. Patient has multiple risk factors including cigarette smoking, family history, diabetes, hypertension. Patient was seen last week and had a stress test. Patient also complains of numbness in her right hand fingertips of the thumb index finger and middle finger. The numbness she woke up with this morning. Pt complaint: chest pain Onset (ago): hour(s) Duration: intermittent Onset: during rest Pain Location: substernal, left chest Severity: moderate Quality: tightness, aching, heaviness Pain Radiation: none Improves with: nothing Worsens with: nothing Associated symptoms: Reports: other (Right fingertip numbness of the thumb index and middle finger) Treatments prior to arrival chest pain: other (Plavix) - Related Data Home Medications Medication Instructions Recorded Confirmed Rosuvastatin [Crestor] 40 mg PO HS 02/17/15 01/06/17 Aspirin [Lo-Dose Aspirin EC] 81 mg PO DAILY 12/18/16 01/06/17 Gabapentin [Neurontin] 600 mg PO TID 01/06/17 01/06/17 Glimepiride [Amaryl] 8 mg PO QAM 01/06/17 01/06/17 Lisinopril [Zestril] 40 mg PO DAILY 01/06/17 01/06/17 Loratadine [Claritin] 10 mg PO DAILY PRN 01/06/17 01/06/17 SitaGLIPtin [Januvia] 100 mg PO DAILY 01/06/17 01/06/17 Previous Rx's Medication Instructions Recorded Clopidogrel [Plavix] 75 mg PO DAILY #30 tablet 01/07/17 Metoprolol XL (24 HR) Succ [Toprol 50 mg PO BID #0 01/07/17 Xl] Allergies Allergy/AdvReac Type Severity Reaction Status Date / Time atorvastatin [From Lipitor] AdvReac Back Pain Verified 02/08/17 18:29 metformin AdvReac Diarrhea Verified 02/08/17 18:29 All systems ED: reviewed and negative except as stated. Constitutional: Denies: fever, chills, weakness, weight change Eyes: Denies: eye pain, eye discharge, vision change ENT ED: Denies: ear pain, throat pain, dental pain, hearing loss, epistaxis, congestion, dysphagia Cardiovascular: Reports: chest pain. Denies: palpitations, dyspnea on exertion , edema, syncope Respiratory: Denies: cough, dyspnea, wheezes, hemoptysis, stridor Gastrointestinal: Denies: abdominal pain, nausea, vomiting, diarrhea, constipation, hematemesis, melena, hematochezia Genitourinary: Denies: dysuria, frequency, hematuria, discharge Musculoskeletal: Denies: back pain, neck pain, arthralgia, myalgia Integumentary: Denies: rash, abrasion, lesions Neurological: Reports: numbness (Right thumb, index finger, middle finger tips) . 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 - Social History Smoking Status: Current every day smoker Alcohol use: Reports: none Drug use: Reports: none Physical Exam - General Limitations: no limitations General appearance: alert, in no apparent distress - Head Head exam: atraumatic, normocephalic, normal inspection - Eye Eye exam: Present: normal appearance, PERRL, EOMI - ENT ENT exam: normal exam, normal oropharynx, mucous membranes moist - Neck Neck exam: Present: normal inspection, full ROM, trachea midline - Chest Chest inspection: Present: normal inspection, symmetric chest wall rise - Respiratory Respiratory exam: Present: normal lung sounds bilaterally - Cardiovascular Cardiovascular exam: Present: regular rate, normal rhythm, normal heart sounds - Abdominal Exam Abdominal exam: Present: soft, Non-Tender. Absent: tenderness, distention, guarding, rebound, rigidity - Extremities Exam Extremities exam: Present: normal inspection, full ROM. Absent: tenderness, pedal edema - Expanded Lower Extremity Exam Neurovascular/Tendon exam: Absent: motor deficit, sensory deficit, tendon deficit Gait: not tested/not observed - Back Exam Back exam: Present: normal inspection, full ROM. Absent: tenderness - Neurological Exam Neurological exam: Present: alert, oriented X3 - Psychiatric Psychiatric exam: Present: normal affect, normal mood - Skin Skin exam: Present: warm, dry, intact, normal color Course - Reevaluation(s) Reevaluation #1: 56-year-old female comes in complaining of chest pain. She has multiple risk factors. She had a stress test doesn't appear that that she had significant stress that she only met a 65% of her target heart rate and 1 met. Patient will be admitted for further evaluation and treatment. Time: 19:17 - Consultations Consultation #1: I discussed the case with . Time: 19:21 Vital Signs Temperature 98.6 F 02/08/17 18:24 Pulse Rate 74 02/08/17 18:24 Respiratory Rate 18 02/08/17 18:24 Blood Pressure 164/103 02/08/17 18:24 O2 Sat by Pulse Oximetry 98 02/08/17 18:24 Temperature 98.6 F 02/08/17 18:24 Pulse Rate 110 02/08/17 18:58 Respiratory Rate 22 02/08/17 18:58 Blood Pressure 154/83 02/08/17 18:58 O2 Sat by Pulse Oximetry 95 02/08/17 18:58 Oxygen Delivery Oxygen Delivery Room Air Chest Pain - Lab Data Result diagrams: 02/08/17 18:22 02/08/17 18:22 Lab Results 02/08/17 02/08/17 02/08/17 Range/Units 18:22 18:22 18:22 WBC 9.9 (4.3-11.1) K/mcL RBC 5.00 H (3.82-4.97) M/mcL Hgb 15.2 (11.5-15.4) g/dL Hct 45.0 H (35.3-44.9) % MCV 90.0 (83.0-100.0) fL MCH 30.4 (28.0-33.3) pg MCHC 33.8 (31.6-35.5) g/dL RDW 12.3 (11.5-14.5) % Plt Count 222 (140-400) K/mcL MPV 11.2 (9.4-12.4) fL Immature Gran % 0.3 (0-4) % Seg Neutrophils % 58.9 % Lymphocytes % 30.3 % Monocytes % 6.3 % Eosinophils % 3.7 % Basophils % 0.5 % Neutrophils # 5.8 (1.6-8.9) K/mcL Lymphocytes # 3.0 (0.6-4.6) K/mcL Monocytes # 0.6 (0.0-1.3) K/mcL Eosinophils # 0.4 (0.0-0.6) K/mcL Basophils # 0.1 (0.0-0.2) K/mcL PT 10.6 (9.4-12.1) Seconds INR 1.0 APTT 31.3 (26.0-36.0) Seconds Sodium 138 (136-145) mEq/L Potassium 4.1 (3.5-4.5) mEq/L Chloride 105 (98-109) mEq/L Carbon Dioxide 22 (19-29) mEq/L BUN 13 (7-20) mg/dL Creatinine 1.00 (0.57-1.11) mg/dL Est GFR ( Amer) > 60 (> 60) Est GFR (Non-Af Amer) 57 L (> 60) BUN/Creatinine Ratio 13 (6-26) Glucose 330 H (70-99) mg/dL Calculated Osmolality 299 (280-300) Calcium 11.3 H (8.6-10.8) mg/dL Troponin I (0-0.03) ng/mL 02/08/17 Range/Units 18:22 WBC (4.3-11.1) K/mcL RBC (3.82-4.97) M/mcL Hgb (11.5-15.4) g/dL Hct (35.3-44.9) % MCV (83.0-100.0) fL MCH (28.0-33.3) pg MCHC (31.6-35.5) g/dL RDW (11.5-14.5) % Plt Count (140-400) K/mcL MPV (9.4-12.4) fL Immature Gran % (0-4) % Seg Neutrophils % % Lymphocytes % % Monocytes % % Eosinophils % % Basophils % % Neutrophils # (1.6-8.9) K/mcL Lymphocytes # (0.6-4.6) K/mcL Monocytes # (0.0-1.3) K/mcL Eosinophils # (0.0-0.6) K/mcL Basophils # (0.0-0.2) K/mcL PT (9.4-12.1) Seconds INR APTT (26.0-36.0) Seconds Sodium (136-145) mEq/L Potassium (3.5-4.5) mEq/L Chloride (98-109) mEq/L Carbon Dioxide (19-29) mEq/L BUN (7-20) mg/dL Creatinine (0.57-1.11) mg/dL Est GFR ( Amer) (> 60) Est GFR (Non-Af Amer) (> 60) BUN/Creatinine Ratio (6-26) Glucose (70-99) mg/dL Calculated Osmolality (280-300) Calcium (8.6-10.8) mg/dL Troponin I 0.00 (0-0.03) ng/mL - EKG Data EKG attestation: Yes I reviewed and interpreted this EKG. EKG shows normal: sinus rhythm Rate: normal Rhythm: NSR When compared to previous EKG there are: no significant changes (07/08/2016) Interpretation: no acute changes Heart Score - Score History: Moderately Suspicious EKG: Non Specific repolarisation Disturbance Age: 45-65 Risk Factors: Equal/Greater than 3 risk factor or history of atherosclerotic disease Troponin: Less than normal limit HEART Score Total: 5 NIH Stroke Scale - Level of Consciousness LOC: Alert - LOC Questions LOC Questions: Answers both correctly - LOC Commands LOC Commands: Performs both correctly - Best Gaze Best Gaze: Normal - Visual Visual: No visual loss - Facial Palsy Facial Palsy: Normal - Motor Arms Motor Arm-Left: No drift for 10 seconds Motor Arm-Right: No drift for 10 seconds - Motor Legs Motor Leg-Left: No drift for 5 seconds Motor Leg-Right: No drift for 5 seconds - Limb Ataxia Limb Ataxia: Normal, No Ataxia - Sensory Sensory: Normal - Best Language Best Language: No aphasia - Dysarthria Dysarthria: Normal - Extinction and Inattention Extinction and Inattention: Normal - NIHSS Total Score NIHSS Total Score: 0
[2017-02-08 18:30] LABS: Basophils # 0.1 K/mcL (0.0-0.2); Basophils % 0.5 %; Eosinophils # 0.4 K/mcL (0.0-0.6); Eosinophils % 3.7 %; Hemoglobin 15.2 g/dL (11.5-15.4); Immature Granulocytes % 0.3 % (0-4); Lymphocytes % 30.3 %; Mean Corpuscular HGB Conc 33.8 g/dL (31.6-35.5); Mean Corpuscular Hemoglobin 30.4 pg (28.0-33.3); Mean Platelet Volume 11.2 fL (9.4-12.4); Monocytes # 0.6 K/mcL (0.0-1.3); Monocytes % 6.3 %; Neutrophils # 5.8 K/mcL (1.6-8.9); Platelet Count 222 K/mcL (140-400); Red Cell Distribution Width 12.3 % (11.5-14.5); Segmented Neutrophils % 58.9 %
[2017-02-08 18:46] LABS: BUN/Creatinine Ratio 13 (6-26); Blood Urea Nitrogen 13 mg/dL (7-20); Calcium 11.3 mg/dL (8.6-10.8); Carbon Dioxide 22 mEq/L (19-29); Chloride 105 mEq/L (98-109); Glucose 330 mg/dL (70-99); Osmolality,Calculated 299 (280-300); Potassium 4.1 mEq/L (3.5-4.5); Sodium 138 mEq/L (136-145); eGFR For African Americans > 60 (> 60); eGFR For Non-African Americans 57 (> 60)
[2017-02-08 18:52] LABS: Prothrombin Time 10.6 Seconds (9.4-12.1)
[2017-02-08 18:55] LABS: Activated Partial Thrombo Time 31.3 Seconds (26.0-36.0)
[2017-02-08] MEDS ORDERED: Aspirin 81 MG TAB.CHEW PO STA (20:47)
[2017-02-08] MEDS ORDERED: Nitroglycerin 0.4 MG TAB.SUBL SL PRN (20:47)
[2017-02-08] MEDS ORDERED: *HR* Morphine 2 MG/ML SYRINGE IVP PRN (20:49)
[2017-02-08] MEDS ORDERED: Naloxone 0.4 MG/ML INJ IVP PRN (20:49)
[2017-02-08] MEDS ORDERED: *HR* Dextrose 50 % in Water (Syg) 50 ML SYRINGE IVP PRN (20:49)
[2017-02-08] MEDS ORDERED: D5% in Water 1,000 ML IVC PRN (20:49)
[2017-02-08] MEDS ORDERED: Dextrose Gel 15 GM PO PRN ×2 (20:49)
[2017-02-08] MEDS ORDERED: Ondansetron 4 MG/2 ML VIAL IVP PRN (20:49)
--- NOTE | 2017-02-08 21:00 | Internal Med History&Physical ---
<Yosef Hoyos - Last Filed: 02/08/17 20:57> Date of Encounter: 02/08/17 Time of Encounter: 20:58 Assessment and Plan (1) Chest pain Current visit: Yes Status: Acute Continues to have CP, reporting dull discomfort 4/10. Mildly HTN with SBP's 160 's. She has undergone a recent cardiac workup on 06/20 including stress test and echocardiogram. Stress test negative for ischemia, echocardiogram 60% EF with moderate ventricular diastolic dysfunction. I have some concerns that she may end up needing a heart catheter and she continues to have chest pain. 325 aspirin now, trial one sublingual nitroglycerin, morphine 2 mg IV push now If CP improves with SL nitro but returns consider adding nitropaste Serial troponin, consult cardiology to determine the need for LHC, or dictate further medical management Restart aspirin, statin, OPHELIA inhibitor, beta nikita, Plavix Continuous tele, continuous SPO2, respiratory support PRN NC initial troponin negative 0.01; hold heparin gtt at this time Qualifiers: Chest pain type: unspecified Qualified Code(s): R07.9 - Chest pain, unspecified (2) Hypertension Current visit: Yes Status: Chronic Remains HTN, with SBP's 160's. She reports compliance with BP meds and has had her doses with the exception of evening doses. Resume OPHELIA, BB; give evening BB now. Continuous tele. Qualifiers: Hypertension type: essential hypertension Qualified Code(s): I10 - Essential (primary) hypertension (3) Numbness and tingling in right hand Current visit: Yes Status: Acute New N/T in right thumb, index and middle fingertips which began this morning. Pain radiates to Rt lateral deltoid and is exacerbated by ROM and movement of thumb. I suspect this is radial nerve compression. CT head in ED unremarkable. She reports the discomfort as tolerable. Continue to monitor for now. (4) Type 2 diabetes mellitus Current visit: Yes Status: Chronic Hyperglycemic upon arrival to ED. Stop oral hypoglycemic agents. Start LSSIC with AC/HS accuchecks and diabetic diet. Qualifiers: Diabetes mellitus complication status: with circulatory complication Diabetes mellitus complication detail: with peripheral angiopathy without gangrene Diabetes mellitus mcfp insulin use: without mcfp use Qualified Code(s): E11.51 - Type 2 diabetes mellitus with diabetic peripheral angiopathy without gangrene (5) Tobacco abuse Current visit: Yes Status: Resolved Tobacco free for the last two weeks (6) DVT prophylaxis Current visit: Yes Status: Acute Heparin SC 5000u SQ Q12 hours Internal Medicine - H&P: HPI Chief complaint: Chest pain Admitted From: Home Plans for Post Hospital Care: Home History of present illness: Ms. Prieto is a 56 year old female with PMH of diabetes, HIV, HTN, smoker. Presents today with substernal left chest discomfort described as dull and rated 4/10. She reports the CP is not exacerbated with activity. Patient reports that she has been experiencing intermittent chest pain off and on and was recently seen at [facility] for a full cardiac workup including stress test and echo. Stress test on 02/20 revealed no ischemia, echocardiogram 02/20 shows an EF of 60% with moderate ventricular diastolic dysfunction. She denies any fever , chills, fatigue, diaphoresis, shortness of breath. Additionally she is reporting N/T in her fingertips of her right hand thumb index finger and middle finger which began this morning. Past Med Surg Social Fam HX - Past Medical History Medical history: diabetes, hyperlipidemia, hypertension, kidney stones Psychiatric history: no psych history - Past Surgical History Surgical History: appendectomy, cholecystectomy, JOÃO/BSO - Social History Smoking Status: Current every day smoker Smokeless Tobacco Status: No Alcohol use: none Drug use: none - Family History Grandmother Hx Family Cardiac Disorders: Yes (unsure) Father Living Status: Hx Family Cancer: Yes Sister Living Status: Hx Family Respiratory Disorders: Yes (COPD) Internal Medicine - H&P: Meds Rosuvastatin [Crestor] 40 mg PO HS 02/17/15 [History] Aspirin [Lo-Dose Aspirin EC] 81 mg PO DAILY 12/18/16 [History] Gabapentin [Neurontin] 600 mg PO TID 01/06/17 [History] Glimepiride [Amaryl] 8 mg PO QAM 01/06/17 [History] Lisinopril [Zestril] 40 mg PO DAILY 01/06/17 [History] Loratadine [Claritin] 10 mg PO DAILY PRN 01/06/17 [History] SitaGLIPtin [Januvia] 100 mg PO DAILY 01/06/17 [History] Clopidogrel [Plavix] 75 mg PO DAILY #30 tablet 01/07/17 [Rx] Metoprolol XL (24 HR) Succ [Toprol Xl] 50 mg PO BID #0 01/07/17 [Rx] 3 Allergy/AdvReac Type Severity Reaction Status Date / Time atorvastatin [From Lipitor] AdvReac Back Pain Verified 02/08/17 18:29 metformin AdvReac Diarrhea Verified 02/08/17 18:29 All Systems PM: A 10-system review of systems was performed and is negative for pertinent findings except as documented above in the HPI. - Constitutional Constitutional: no chills, no fever(s), no night sweats - EENT Eyes: no change in vision, no discharge, no pain, no photophobia Ears: no ear discharge, no ear pain, no tinnitus Nose, mouth and throat: no dysphagia, no nasal discharge, no neck pain, no sore throat - Cardiovascular Cardiovascular ROS IM: as per HPI, chest pain, no diaphoresis, no dyspnea, no edema, no irregular heart rhythm, no lightheadedness, no palpitations, no syncope - Respiratory Respiratory: no cough, no dyspnea, no hemoptysis, no dyspnea on exertion, no wheezing, no stridor, no excessive phlegm production - Gastrointestinal Gastrointestinal: no abdominal pain, no diarrhea, no hematemesis, no hematochezia, no melena, no nausea, no vomiting - Genitourinary Genitourinary: no change in urinary stream, no dysuria, no flank pain, no hematuria - Musculoskeletal Musculoskeletal ROS IM: as per HPI, numbness, tingling - Integumentary Integumentary IM: no rash, no unusual bruising - Neurological Neurological ROS: no confusion, no convulsions, no focal weakness, no numbness, no tingling, no tremor(s) - Hematologic/Lymphatic Hematologic/Lymphatic: no easy bruising - Constitutional Vitals: Temp Pulse Resp BP Pulse Ox 98.6 F 110 18 166/68 95 02/08/17 18:24 02/08/17 18:58 02/08/17 19:57 02/08/17 19:57 02/08/17 18:58 General appearance: Present: cooperative, A&O X 3, no acute distress, answers questions appropriately - Head Head exam: Present: atraumatic, normocephalic - Neck Neck exam general surgery: Absent: lymphadenopathy - Respiratory Respiratory exam: Present: decreased breath sounds, CTAB, rales. Absent: accessory muscle use, respiratory distress, rhonchi, wheezes, tachypnea Additional comments: Fine, left lower lobe - Cardiovascular Cardiovascular exam: Present: RRR, +S1, +S2. Absent: bradycardia, diastolic murmur, gallop, irregular rhythm, rubs, systolic murmur, tachycardia - GI/Abdominal GI/Abdominal exam: Present: normal bowel sounds, soft, no peritoneal signs. Absent: distended, tenderness - Extremities Exam Extremities exam: Present: warm, radial pulses palpable and symmetrical. Absent : calf tenderness, cyanotic, pedal edema - Neurological Exam Neurological exam: Present: CN II-XII intact, oriented X3, no focal deficits. Absent: pronater drift, facial droop, speech deficit - Skin Skin exam: Present: dry, intact Internal Med - H&P Results - Labs CBC & Chem 7: 02/08/17 18:22 02/08/17 18:22 - EKG Data -: EKG Interpreted by Myself EKG shows normal: sinus rhythm - EKG Data Prior EKG available for review: yes When compared to previous EKG: there is no significant change Interpretation IM: normal EKG - Diagnostic Studies Chest x-ray Status: image reviewed by me Additional comments: No acute pulmonary process CT scan - head Status: image reviewed by me Additional comments: No acute intracranial abnormalities <Jerzy Newton - Last Filed: 02/09/17 02:42> Date of Encounter: 02/09/17 Time of Encounter: 00:40 - Cardiovascular Cardiovascular ROS IM: no chest pain, no dyspnea, no orthopnea, no paroxysmal nocturnal dyspnea - Respiratory Respiratory: no cough, no hemoptysis, no chest congestion - Constitutional Vitals: Temp Pulse Resp BP Pulse Ox 98.3 F 60 15 113/52 94 02/08/17 23:52 02/08/17 23:52 02/08/17 23:52 02/08/17 23:52 02/08/17 23:52 General appearance: Present: cooperative, A&O X 3, pleasant, no acute distress - Neck Neck exam general surgery: Present: full ROM, supple. Absent: tenderness - Expanded Neck Exam Neck exam: Absent: carotid bruit - Respiratory Respiratory exam: Present: CTAB. Absent: rales, rhonchi, wheezes - Cardiovascular Cardiovascular exam: Present: RRR, +S1, +S2. Absent: diastolic murmur, systolic murmur - GI/Abdominal GI/Abdominal exam: Present: soft. Absent: tenderness Internal Med - H&P Results - Labs CBC & Chem 7: 02/09/17 02:01 02/09/17 02:01 Labs: Short CBC 02/09/17 Range/Units 02:01 WBC 10.4 (4.3-11.1) K/mcL Hgb 12.9 D (11.5-15.4) g/dL Hct 38.4 (35.3-44.9) % Plt Count 194 (140-400) K/mcL Neutrophils # 5.5 (1.6-8.9) K/mcL BMP 02/09/17 02:01 Sodium 139 Potassium 4.3 Chloride 111 H Carbon Dioxide 23 BUN 12 Creatinine 0.78 Glucose 216 H Calcium 10.6 Liver Function 02/09/17 Range/Units 02:01 Total Bilirubin 0.3 (0.2-1.2) mg/dL AST 10 (5-34) Units/L ALT 11 (0-55) Units/L Alkaline Phosphatase 73 (38-126) Units/L Albumin 2.9 L (3.5-5.0) g/dL - Attending Attestation I discussed the patient [place], PMH, ROS, lab data, and exam findings with Yosef Hoyos CNP. I then saw and examined patient independently as well. Patient is sleeping in bed comfortably and reports no problems presently. She is chest pain free now. She reports to me the same history provided to me by Yosef. Patient has risk factors for CAD and has recurring chest pain. Patient will most likely need LHC, but I'll defer to cardiology. Cardiology has been consulted and we'll await their opinion. Other than my comments above and noted exam findings, I agree with Yosef's assessment and plan.
[2017-02-08] MEDS: Gabapentin 300 MG CAPSULE PO SCH (21:36)
[2017-02-08] MEDS: Metoprolol XL (24 HR) Succ 50 MG TAB.ER.24H PO SCH (21:37)
[2017-02-08] MEDS: Insulin LISPRO 300 UNITS/3 ML VIAL SQ SCH (21:37)
[2017-02-08] MEDS: *HR* Heparin 5,000 UNIT/ML VIAL SQ SCH (21:38)
[2017-02-09 02:08] LABS: Basophils % 0.4 %; Eosinophils # 0.4 K/mcL (0.0-0.6); Eosinophils % 3.6 %; Hematocrit 38.4 % (35.3-44.9); Hemoglobin 12.9 g/dL (11.5-15.4); Immature Granulocytes % 0.4 % (0-4); Lymphocytes # 3.7 K/mcL (0.6-4.6); Lymphocytes % 35.9 %; Mean Corpuscular HGB Conc 33.6 g/dL (31.6-35.5); Mean Corpuscular Hemoglobin 30.5 pg (28.0-33.3); Mean Corpuscular Volume 90.8 fL (83.0-100.0); Mean Platelet Volume 11.1 fL (9.4-12.4); Monocytes # 0.7 K/mcL (0.0-1.3); Monocytes % 6.6 %; Neutrophils # 5.5 K/mcL (1.6-8.9); Platelet Count 194 K/mcL (140-400); Red Blood Count 4.23 M/mcL (3.82-4.97); Red Cell Distribution Width 12.4 % (11.5-14.5); Segmented Neutrophils % 53.1 %
[2017-02-09 02:23] LABS: Alanine Aminotransferase 11 Units/L (0-55); Albumin 2.9 g/dL (3.5-5.0); Alkaline Phosphatase 73 Units/L (38-126); Aspartate Amino Transferase 10 Units/L (5-34); BUN/Creatinine Ratio 15 (6-26); Bilirubin,Total 0.3 mg/dL (0.2-1.2); Blood Urea Nitrogen 12 mg/dL (7-20); Calcium 10.6 mg/dL (8.6-10.8); Carbon Dioxide 23 mEq/L (19-29); Chloride 111 mEq/L (98-109); Glucose 216 mg/dL (70-99); Osmolality,Calculated 294 (280-300); Potassium 4.3 mEq/L (3.5-4.5); Sodium 139 mEq/L (136-145); Total Protein 5.9 g/dL (6.0-8.3); eGFR For African Americans > 60 (> 60); eGFR For Non-African Americans > 60 (> 60)
[2017-02-09] MEDS: *HR* Heparin 5,000 UNIT/ML VIAL SQ SCH ×2 (05:58→17:14)
[2017-02-09] MEDS: Insulin LISPRO 300 UNITS/3 ML VIAL SQ SCH ×4 (08:58→20:31)
[2017-02-09] MEDS: Metoprolol XL (24 HR) Succ 50 MG TAB.ER.24H PO SCH ×2 (10:52→20:31)
[2017-02-09] MEDS: Lisinopril 20 MG TABLET PO SCH (10:52)
[2017-02-09] MEDS: Aspirin Enteric Coated 81 MG Tablet PO SCH (10:53)
[2017-02-09] MEDS: Gabapentin 300 MG CAPSULE PO SCH ×3 (10:53→20:30)
--- NOTE | 2017-02-09 13:34 | Internal Med Progress Note ---
Date of Encounter: 02/09/17 Time of Encounter: 13:31 - Assessment and plan (1) CVA (cerebral vascular accident) Current Visit: Yes Status: Acute Assessment and plan: Gertrudis Prieto is a 56 y/o female with past medical history hypertension, diabetes and carotid stenosis who presented to [facility] on 02/08/2017 with complaints of right hand numbness and tingling. She was found to have a small infarct and was admitted for further workup and treatment. 1. CVA: presented with right hand numbness and tingling. Brain MRI showed a tiny acute infarct involving the left thalamus. Has known complete occlusion of right common carotid artery and 50% stenosis of L ICA. Cont home ASA, Plavix , statin. Echo pending. Neurology, PT/OT consulted 2. Carotid stenosis: Has known 100% lesion of right internal and common carotid artery and 50% stenosis of left ICA. Evaluated by vascular surgery on 2016 who did not recommend a left carotid endarterectomy at that time. Cont ASA , Plavix, statin. 3. Hypertension: per hx. No need for permissive HTN at this time as symptoms onset greater than 24 hours ago. Continue home BP medication. Monitor BP and titrate PRN 4. Diabetes: Hgb A1c 7.2%. Holding home oral hypoglycemics. SSI. Monitor blood sugar and titrate PRN 5. DVT prophylaxis: heparin, SCDs Qualifiers: CVA mechanism: unspecified Qualified Code(s): I63.9 - Cerebral infarction, unspecified (2) Carotid stenosis Current Visit: No Status: Chronic Qualifiers: Laterality: bilateral Qualified Code(s): I65.23 - Occlusion and stenosis of bilateral carotid arteries (3) COPD (chronic obstructive pulmonary disease) Current Visit: No Status: Chronic Qualifiers: COPD type: unspecified COPD Qualified Code(s): J44.9 - Chronic obstructive pulmonary disease, unspecified (4) Hypertension Current Visit: Yes Status: Chronic Qualifiers: Hypertension type: essential hypertension Qualified Code(s): I10 - Essential (primary) hypertension (5) Type 2 diabetes mellitus Current Visit: Yes Status: Chronic Qualifiers: Diabetes mellitus complication status: with circulatory complication Diabetes mellitus complication detail: with peripheral angiopathy without gangrene Diabetes mellitus senior living insulin use: without moth exterminator use Qualified Code(s): E11.51 - Type 2 diabetes mellitus with diabetic peripheral angiopathy without gangrene - Subjective Interval history: Seen and examined at bedside. Patient is due to me, information obtained from chart review and patient report. Patient says the reason why she came in was for right hand numbness and tingling. She had an episode of dull chest pain which she suspects is secondary to her uncontrolled hypertension or. Says chest pain went away as blood pressure was controlled. Still with numbness and tingling right hand. Symptoms were present when she woke up yesterday morning. No slurred speech, no facial drooping, no weakness. - Constitutional Vitals: Temp Pulse Resp BP Pulse Ox 97.3 F L 67 18 150/82 96 02/09/17 11:52 02/09/17 11:52 02/09/17 11:52 02/09/17 11:52 02/09/17 11:52 General appearance: Present: cooperative, A&O X 3, pleasant, no acute distress - Head Head exam: Present: atraumatic, normocephalic - Eye Eye exam: Present: PERRL, conjuntiva pink, sclera anicteric Pupils: Present: PERRL - Neck Neck exam general surgery: Present: supple, trachea midline. Absent: lymphadenopathy - Respiratory Respiratory exam: Present: CTAB. Absent: accessory muscle use, rales, rhonchi, wheezes - Cardiovascular Cardiovascular exam: Present: RRR, +S1, +S2. Absent: diastolic murmur, gallop, rubs, systolic murmur - GI/Abdominal GI/Abdominal exam: Present: normal bowel sounds, soft, no peritoneal signs. Absent: distended, tenderness - Extremities Exam Extremities exam: Present: warm, radial pulses palpable and symmetrical. Absent : calf tenderness, cyanotic, pedal edema - Neurological Exam Neurological exam: Present: CN II-XII intact, oriented X3, no focal deficits. Absent: pronater drift, facial droop, speech deficit - Skin Skin exam: Present: dry, intact Internal Medicine: Result - Labs CBC & Chem 7: 02/09/17 02:01 02/09/17 02:01 Labs: Short CBC 02/09/17 Range/Units 02:01 WBC 10.4 (4.3-11.1) K/mcL Hgb 12.9 D (11.5-15.4) g/dL Hct 38.4 (35.3-44.9) % Plt Count 194 (140-400) K/mcL Neutrophils # 5.5 (1.6-8.9) K/mcL BMP 02/09/17 02:01 Sodium 139 Potassium 4.3 Chloride 111 H Carbon Dioxide 23 BUN 12 Creatinine 0.78 Glucose 216 H Calcium 10.6 Cardiac Enzymes 02/09/17 02/09/17 Range/Units 02:01 07:56 Troponin I 0.01 0.00 (0-0.03) ng/mL Liver Function 02/09/17 Range/Units 02:01 Total Bilirubin 0.3 (0.2-1.2) mg/dL AST 10 (5-34) Units/L ALT 11 (0-55) Units/L Alkaline Phosphatase 73 (38-126) Units/L Albumin 2.9 L (3.5-5.0) g/dL - ABG Interpretation ABG results: PT/INR, D-dimer PT 10.6 Seconds (9.4-12.1) 02/08/17 18:22 - Impressions Impressions Brain MRI 02/09/17 10:43 IMPRESSION: Tiny acute infarct involving the left thalamus. Mild chronic small vessel ischemic disease within the periventricular white matter. Stable occlusion of the right internal carotid artery. D/ /09/2017 13:15:06 Juan Woodruff MD / [email or web address] Interpreting Provider: Juan Woodruff MD Consult Discharge Plan - Plan Referrals: Giuseppe Kennedy DO [Resident] - 02/16/17 10:00 am Casey Rubio DO [Primary Care Provider] -
[2017-02-09] MEDS ORDERED: Acetaminophen 325 MG TABLET PO PRN (15:01)
--- NOTE | 2017-02-09 15:02 | Neurology - Consult Note ---
Date of Encounter: 02/09/17 Time of Encounter: 14:59 Assessment and Plan (1) Left sided lacunar infarction Current Visit: Yes Status: Acute Unfortunately for this patient her risk factors and likely genetic factors have resulted in an accelerated atherosclerosis. She has experienced a lacunar infarct in the left thalamus. Generally this area is susceptible to small vessel disease, in this case associated with her diabetes, hypertension as well as a prior history of cigarette smoking. Her blood pressure was elevated at time of admission. It is been elevated from time to time since admit. At this juncture I would not opt to go ahead and normalize her blood pressure. Generally there is no advantage to double antiplatelet therapy however in this instance not certain as much. All for particularly considering her age. I will recommend we consider Plavix daily along with restarting aspirin 81 mg. She may need home PT or even a short stint of inpatient PT if she is not able to function well enough to care for herself. Aggressive risk factor management as per mL. Continue statins and antihypertensives. I will reevaluate her at your request. History of Present Illness HPI: Ms. Prieto is a 56 year old female who is admitted approximately one month ago due to symptoms associated with an acute right internal carotid artery occlusion is now being admitted secondary to symptoms of paresthesias of the right hand as well as the right foot. MRI scan of the brain shows an acute left thalamic infarct. In addition she, also had complaints of chest pain at the time of admission. She does have a past medical history significant smoking although she recently quit, hyperlipidemia, diabetes mellitus, hypertension. Blood pressure at the time of admission was elevated at 164/103. She was given aspirin at that time of admit. She states that she had been on Plavix as well as aspirin 81 mg just recently taken off the aspirin about a month or so ago. When she was here month ago she had an extensive workup which revealed an occluded right internal carotid artery, vascular consultation was also obtained in January and at that point he felt that the elevated carotid Doppler velocities of the left internal carotid were due to compensatory flow through the [place] of [place]. The actual CT of the neck revealed approximately 50% stenosis of the left ICA. Currently she still has paresthesias of the right hand and the right foot. She also has a little clumsiness of the right upper and right lower extremity. Past Med Surg Social Fam HX - Past Medical History Medical history: diabetes, hyperlipidemia, hypertension, kidney stones Psychiatric history: no psych history - Past Surgical History Surgical History: appendectomy, cholecystectomy, JOÃO/BSO - Social History Smoking Status: Former smoker Smokeless Tobacco Status: No Alcohol use: none Drug use: none - Family History Grandmother Hx Family Cardiac Disorders: Yes (unsure) Father Living Status: Hx Family Cancer: Yes Sister Living Status: Hx Family Respiratory Disorders: Yes (COPD) Medications and Allergies Rosuvastatin [Crestor] 40 mg PO HS 02/17/15 [History] Aspirin [Lo-Dose Aspirin EC] 81 mg PO DAILY 12/18/16 [History] Glimepiride [Amaryl] 8 mg PO QAM 01/06/17 [History] Lisinopril [Zestril] 40 mg PO DAILY 01/06/17 [History] Loratadine [Claritin] 10 mg PO DAILY PRN 01/06/17 [History] SitaGLIPtin [Januvia] 100 mg PO DAILY 01/06/17 [History] Clopidogrel [Plavix] 75 mg PO DAILY #30 tablet 01/07/17 [Rx] Metoprolol XL (24 HR) Succ [Toprol Xl] 50 mg PO BID #0 01/07/17 [Rx] Ergocalciferol (VITAMIN D2) [Vitamin D2] 4,000 unit PO DAILY 02/09/17 [History] Gabapentin [Neurontin] 800 mg PO TID 02/09/17 [History] Ibuprofen [Motrin] 800 mg PO Q8HR 02/09/17 [History] 3 Allergy/AdvReac Type Severity Reaction Status Date / Time atorvastatin [From Lipitor] AdvReac Back Pain Verified 02/08/17 18:29 metformin AdvReac Diarrhea Verified 02/08/17 18:29 All Systems: A 10-system review of systems was performed and is negative for pertinent findings except as documented above in the HPI. Review of Systems: 10 point review of systems is consistent with a history of present illness otherwise negative. Physical Examination - Vital Signs Vital Signs: Initial Vital Signs Temp Pulse Resp BP Pulse Ox 98.6 F 74 18 164/103 98 02/08/17 18:24 02/08/17 18:24 02/08/17 18:24 02/08/17 18:24 02/08/17 18:24 - Neurologic Motor examination - right side: 5: deltoids, biceps, triceps, hip flexors, tibialis Anterior, quadriceps, toe extension (EHL), plantarflexion, 5/5: botany technician Motor examination - left side: 5: deltoids, biceps, triceps, wrist flexion, botany technician, quadriceps, tibialis Anterior, toe extension (EHL), plantarflexion Detailed sensory examination: other (There is generalized hypoesthesia of the right upper and lower extremity.) Reflexes: Biceps: 1+, Triceps: 1+, Brachioradialis: 1+, Patella: 0, Achilles: 0 Mental Status Examination: awake, alert, oriented to person, oriented to place, oriented to time, follows commands appropriately, answers questions appropriately, no agnosia, no aphasia, no aproxia Cranial nerve examination: PERRL, EOMI, visual kennedy intact, corneal reflexes brisk symmetrically, sensory to face intact, mastication intact, no dysarthria, hearing is intact symmetrically, soft palate elevates bilaterally upon phonation , gag reflex intact Cranial Nerve Exam: flattening of masolabic/folds: Right Results - Laboratory Findings CBC and BMP: 02/09/17 02:01 02/09/17 02:01 Abnormal lab findings: Abnormal lab results Chloride 111 mEq/L (98-109) H 02/09/17 02:01 Glucose 216 mg/dL (70-99) H 02/09/17 02:01 Serum Total Protein 5.9 g/dL (6.0-8.3) L 02/09/17 02:01 Albumin 2.9 g/dL (3.5-5.0) L 02/09/17 02:01 Albumin/Globulin Ratio 1.0 (1.1-2.2) L 02/09/17 02:01 Consult Discharge Plan - Plan Referrals: Giuseppe Kennedy DO [Resident] - 02/16/17 10:00 am Casey Rubio DO [Primary Care Provider] -
--- NOTE | 2017-02-09 16:44 | Electrocardiograph Report ---
[place] [id number] Test Date: 2017-02-08 Pat Name: Gertrudis Prieto Department: 102 Room: 3B44 Gender: F Manager Transfer: Joy : 1960 Requested By: Ruperto Merida Order Number: [id number] Reading MD: Isadora Galvan Measurements Intervals [place] Rate: 82 P: 53 AK: 137 QRS: 23 QRSD: 93 T: 27 QT: 380 QTc: 419 Interpretive Statements SINUS RHYTHM NONSPECIFIC ST & T-WAVE ABNORMALITY Electronically Signed On 02-09-2017 16:42:44 EST by Isadora Galvan
[2017-02-10] MEDS: *HR* Heparin 5,000 UNIT/ML VIAL SQ SCH (06:18)
[2017-02-10] MEDS: Insulin LISPRO 300 UNITS/3 ML VIAL SQ SCH ×2 (07:55→11:50)
[2017-02-10] MEDS: Lisinopril 20 MG TABLET PO SCH (07:56)
[2017-02-10] MEDS: Gabapentin 300 MG CAPSULE PO SCH (07:56)
[2017-02-10] MEDS: Metoprolol XL (24 HR) Succ 50 MG TAB.ER.24H PO SCH (07:56)
[2017-02-10] MEDS: Aspirin Enteric Coated 81 MG Tablet PO SCH (07:56)
[2017-02-10 11:28] VITALS: BP 126/85
--- NOTE | 2017-02-10 13:21 | Discharge Summary ---
Date of Encounter: 02/10/17 Time of Encounter: 13:12 - Discharge Diagnosis (1) CVA (cerebral vascular accident) Priority: Primary Status: Acute Comments: Gertrudis Prieto is a 56 y/o female with past medical history hypertension, diabetes and carotid stenosis who presented to [facility] on 02/08/2017 with complaints of right hand numbness and tingling. She was found to have a small infarct and was admitted for further workup and treatment. 1. CVA: presented with right hand numbness and tingling. Brain MRI showed a tiny acute infarct involving the left thalamus. Has known complete occlusion of right common carotid artery and 50% stenosis of LICA. Evaluated by Neurology who recommended medical management with ASA, Plavix, statin. Can follow up with PCP and Neurology outpatient 2. Carotid stenosis: Has known 100% lesion of right internal and common carotid artery and 50% stenosis of left ICA. Evaluated by vascular surgery on 2016 who did not recommend a left carotid endarterectomy. Cont ASA, Plavix, statin. Will need repeat imaging and follow-up with vascular surgery in 6 months. 3. Hypertension: per hx. Symptom onset was greater than 24 hours after CVA was found therefore no role for permissive hypertension. Continue home BP medication. 4. Diabetes: Hgb A1c 7.2%. Resume home diabetes medication regimen. Qualifiers: CVA mechanism: occlusion Precerebral and cerebral artery: vertebral artery Laterality of affected vessel: left Qualified Code(s): I63.212 - Cerebral infarction due to unspecified occlusion or stenosis of left vertebral artery (2) Carotid stenosis Priority: Primary Status: Chronic Qualifiers: Laterality: bilateral Qualified Code(s): I65.23 - Occlusion and stenosis of bilateral carotid arteries (3) COPD (chronic obstructive pulmonary disease) Priority: Primary Status: Acute Qualifiers: COPD type: unspecified COPD Qualified Code(s): J44.9 - Chronic obstructive pulmonary disease, unspecified (4) Hypertension Priority: Primary Status: Chronic Qualifiers: Hypertension type: essential hypertension Qualified Code(s): I10 - Essential (primary) hypertension (5) Type 2 diabetes mellitus Priority: Primary Status: Chronic Qualifiers: Diabetes mellitus complication status: with circulatory complication Diabetes mellitus complication detail: with peripheral angiopathy without gangrene Diabetes mellitus halfway insulin use: without intermodal customer service use Qualified Code(s): E11.51 - Type 2 diabetes mellitus with diabetic peripheral angiopathy without gangrene - Discharge Medications Prescriptions: Aspirin [Lo-Dose Aspirin EC] 81 mg PO DAILY #30 tablet. Home Medications: Rosuvastatin [Crestor] 40 mg PO HS 02/17/15 [History] Glimepiride [Amaryl] 8 mg PO QAM 01/06/17 [History] Lisinopril [Zestril] 40 mg PO DAILY 01/06/17 [History] Loratadine [Claritin] 10 mg PO DAILY PRN 01/06/17 [History] SitaGLIPtin [Januvia] 100 mg PO DAILY 01/06/17 [History] Clopidogrel [Plavix] 75 mg PO DAILY #30 tablet 01/07/17 [Rx] Metoprolol XL (24 HR) Succ [Toprol Xl] 50 mg PO BID #0 01/07/17 [Rx] Ergocalciferol (VITAMIN D2) [Vitamin D2] 4,000 unit PO DAILY 02/09/17 [History] Gabapentin [Neurontin] 800 mg PO TID 02/09/17 [History] Ibuprofen [Motrin] 800 mg PO Q8HR 02/09/17 [History] Aspirin [Lo-Dose Aspirin EC] 81 mg PO DAILY #30 tablet. 02/10/17 [Rx] Allergies/Adverse Reactions: 3 Allergy/AdvReac Type Severity Reaction Status Date / Time atorvastatin [From Lipitor] AdvReac Back Pain Verified 02/08/17 18:29 metformin AdvReac Diarrhea Verified 02/08/17 18:29 Date of admission: 02/09/17 15:36 Primary care physician: Casey Rubio DO Discharging clinician: Judy Sims Anticipated date of discharge: 02/10/17 - Patient Status Disposition: Home Health Service Condition: Good Functional capacity at discharge: independent ambulation Overall status at discharge: patient is progressing back to baseline - Discharge Instructions Instructions: Carotid Artery Disease (DC), Ischemic Stroke (DC), Aspirin (By mouth), Clopidogrel (By mouth) Follow Up With: Giuseppe Kennedy DO [Resident] - 02/16/17 10:00 am Casey Rubio DO [Primary Care Provider] - Forms: ED Satisfaction Letter - Diet and Activity Activity: increase activity as tolerated Diet: diabetic diet, low fat, low cholesterol Interval History: Seen and examined at bedside. Patient says she feels much better like to go home today. Still has some numbness and tingling in right hand but overall improved. No chest pain, no shortness of breath. No blurred or double vision. No headaches. No weakness in extremities Hospital course: See assessment and plan for hospital course - Time Spent with Patient Total time spent providing and/or coordinating discharge services: Greater than 30 minutes (33 minutes spent on discharge) - Constitutional Vitals: Temp Pulse Resp BP Pulse Ox 98.0 F 54 18 126/85 94 02/10/17 11:27 02/10/17 11:27 02/10/17 11:27 02/10/17 11:27 02/10/17 11:27 General appearance: Present: cooperative, A&O X 3, pleasant, no acute distress - Head Head exam: Present: atraumatic, normocephalic - Eye Eye exam: Present: PERRL, conjuntiva pink, sclera anicteric Pupils: Present: PERRL - Neck Neck exam general surgery: Present: supple, trachea midline. Absent: lymphadenopathy - Respiratory Respiratory exam: Present: CTAB. Absent: accessory muscle use, rales, rhonchi, wheezes - Cardiovascular Cardiovascular exam: Present: RRR, +S1, +S2. Absent: diastolic murmur, gallop, rubs, systolic murmur - GI/Abdominal GI/Abdominal exam: Present: normal bowel sounds, soft, no peritoneal signs. Absent: distended, tenderness - Extremities Exam Extremities exam: Present: warm, radial pulses palpable and symmetrical. Absent : calf tenderness, cyanotic, pedal edema - Neurological Exam Neurological exam: Present: CN II-XII intact, oriented X3, no focal deficits. Absent: pronater drift, facial droop, speech deficit - Skin Skin exam: Present: dry, intact
--- NOTE | 2017-02-10 13:31 | Physician Discharge Referral ---
Home Health/Hosp Referral Info Transfer to: Home Health Attending Provider: Judy Sims CNP Provider in Charge Post Discharge: PCP - Diagnosis (1) CVA (cerebral vascular accident) Status: Acute (2) Carotid stenosis Status: Chronic (3) COPD (chronic obstructive pulmonary disease) Status: Acute (4) Hypertension Status: Chronic (5) Type 2 diabetes mellitus Status: Chronic - Respiratory Orders None Smoking Cessation: Smoking cessation has been advised. For more information, call the [place] Tobacco Quit Line at 2-705-PEDW-NOW. - Diet/Nutrition Diet/Nutrition Orders: No Concentrated Sweets - Activity Activity Orders: Up ad juan - Services Needed Following services are medically necessary services: Occupational Therapy - Transfer Medications Prescriptions: Aspirin [Lo-Dose Aspirin EC] 81 mg PO DAILY #30 tablet. Home Medications: Rosuvastatin [Crestor] 40 mg PO HS 02/17/15 [History] Glimepiride [Amaryl] 8 mg PO QAM 01/06/17 [History] Lisinopril [Zestril] 40 mg PO DAILY 01/06/17 [History] Loratadine [Claritin] 10 mg PO DAILY PRN 01/06/17 [History] SitaGLIPtin [Januvia] 100 mg PO DAILY 01/06/17 [History] Clopidogrel [Plavix] 75 mg PO DAILY #30 tablet 01/07/17 [Rx] Metoprolol XL (24 HR) Succ [Toprol Xl] 50 mg PO BID #0 01/07/17 [Rx] Ergocalciferol (VITAMIN D2) [Vitamin D2] 4,000 unit PO DAILY 02/09/17 [History] Gabapentin [Neurontin] 800 mg PO TID 02/09/17 [History] Ibuprofen [Motrin] 800 mg PO Q8HR 02/09/17 [History] Aspirin [Lo-Dose Aspirin EC] 81 mg PO DAILY #30 tablet. 02/10/17 [Rx] Allergies/Adverse Reactions: 3 Allergy/AdvReac Type Severity Reaction Status Date / Time atorvastatin [From Lipitor] AdvReac Back Pain Verified 02/08/17 18:29 metformin AdvReac Diarrhea Verified 02/08/17 18:29 Certification: Further, I certify that my clinical findings support that this patient is homebound (i.e. absences from home require considerable and taxing effort and are for medical reasons or judaism services or infrequently or short duration when for other reasons) because: Homebound Reason: Patient requires assistance of a person or device to safely leave home Attestation: My signature below is to certify that this patient is under my care and that I, or nurse practitioner, or a physician's certified surgical tech/first assistant working with me, has a face-to -face encounter with this patient.
== END 2017-02-10 14:20 | disposition home health service (06) | DRG 45 ==
LOC: 3BNU 18:00 → EMEROO 18:00 → 3BNU 20:45 → ICNU 22:15 → 3BNU 22:18
PROVIDERS: ADMIT Pediatrics; ATTEND Registered Nurse

== ENCOUNTER 2020-08-21 06:03 | Inpatient (IN) ==
[2020-08-21] MEDS ORDERED: CeFAZolin Syr 2,000MG/20 ML 2,000 MG/20 ML SYRINGE IVPB ONE (06:27)
[2020-08-21] MEDS ORDERED: Ringers Solution, Lactated 1,000 ML IVC SCH (06:30)
[2020-08-21] MEDS ORDERED: Heparin 1,000 UNITS/500 mL 500 ML ONE ×2 (07:00→07:17)
[2020-08-21] MEDS ORDERED: Acetaminophen IV 1,000 MG/100 ML BAG IVPB ONE (07:03)
[2020-08-21] MEDS ORDERED: Famotidine 20 MG/2 ML VIAL IVP ONE (07:03)
[2020-08-21] MEDS ORDERED: *HR* Succinylcholine 200 MG/10 ML VIAL IVP ONE (07:04)
[2020-08-21] MEDS ORDERED: *HR* FentaNYL (PF) 100 MCG/2 ML VIAL ONE (07:04)
[2020-08-21] MEDS ORDERED: *HR* Propofol 200 MG/20 ML VIAL IVP ONE (07:04)
[2020-08-21] MEDS ORDERED: *HR* Midazolam HCl 2 MG/2 ML VIAL ONE (07:04)
[2020-08-21] MEDS ORDERED: Lidocaine -MPF 2% 2 ML VIAL ONE (07:04)
[2020-08-21] MEDS ORDERED: *HR* Rocuronium Bromide 50 MG/5 ML VIAL ONE (07:04)
[2020-08-21] MEDS ORDERED: *HR* Remifentanil 2 MG VIAL IVP ONE (07:04)
[2020-08-21] MEDS ORDERED: Lidocaine -MPF 4% 5 ML AMPUL ONE (07:04)
[2020-08-21] MEDS ORDERED: *HR* Phenylephrine 10 MG/ML VIAL ONE (07:04)
[2020-08-21] MEDS ORDERED: EPHEDrine 50 MG/ML VIAL ONE (07:04)
[2020-08-21] MEDS ORDERED: Ondansetron 4 MG/2 ML VIAL ONE (07:04)
[2020-08-21] MEDS ORDERED: ceFAZolin 1,000 MG, Sodium Chloride IRRigation 1,000 ML IR ONE (07:45)
[2020-08-21] MEDS ORDERED: *HR* Labetalol 20 MG/4 ML SYRINGE IVP PRN ×2 (07:59→12:14)
[2020-08-21] MEDS ORDERED: Albuterol 2.5 MG/3 ML NEBULIZER IH PRN (07:59)
[2020-08-21] MEDS ORDERED: *HR* OxyCODONE Immed Rel 5 MG TABLET PO PRN ×2 (07:59→12:14)
[2020-08-21] MEDS ORDERED: Ondansetron 4 MG/2 ML VIAL IVP PRN ×2 (07:59→12:14)
[2020-08-21] MEDS ORDERED: *HR* Heparin 5,000 UNIT/ML VIAL ONE ×2 (08:40→09:47)
[2020-08-21] MEDS: *HR* FentaNYL (PF) 100 MCG/2 ML VIAL IVP PRN ×2 (10:54→10:59)
[2020-08-21] MEDS ORDERED: *HR* HYDROcodone/Acet 5/325 mg TABLET PO PRN (12:14)
[2020-08-21] MEDS ORDERED: Naloxone 0.4 MG/ML INJ IVP PRN (12:14)
[2020-08-21] MEDS: CeFAZolin 2 GM/120 ML BAG IVPB SCH (16:05)
[2020-08-21] MEDS ORDERED: Insulin LISPRO 300 UNITS/3 ML VIAL SUBQ SCH (21:45)
[2020-08-21] MEDS: Gabapentin 400 MG CAPSULE PO SCH (22:00)
[2020-08-21] MEDS: Acetaminophen 325 MG TABLET PO PRN (23:03)
[2020-08-22] MEDS: CeFAZolin 2 GM/120 ML BAG IVPB SCH ×2 (00:35→07:40)
[2020-08-22 05:09] LABS: Basophils % 0.2 %; Eosinophils % 0.1 %; Hematocrit 40.4 % (35.3-44.9); Hemoglobin 12.9 g/dL (11.5-15.4); Immature Granulocytes % 0.4 % (0-4); Lymphocytes # 2.8 K/mcL (0.6-4.6); Lymphocytes % 20.7 %; Mean Corpuscular HGB Conc 31.9 g/dL (31.6-35.5); Mean Corpuscular Hemoglobin 30.9 pg (28.0-33.3); Mean Corpuscular Volume 96.7 fL (83.0-100.0); Mean Platelet Volume 10.8 fL (9.4-12.4); Monocytes % 7.2 %; Neutrophils # 9.8 K/mcL (1.6-8.9); Platelet Count 218 K/mcL (140-400); Red Blood Count 4.18 M/mcL (3.82-4.97); Segmented Neutrophils % 71.4 %; White Blood Count 13.7 K/mcL (4.3-11.1)
[2020-08-22 05:28] LABS: BUN/Creatinine Ratio 26 (6-26); Blood Urea Nitrogen 18 mg/dL (8-23); Calcium 10.4 mg/dL (8.6-10.3); Carbon Dioxide 23 mEq/L (23-29); Chloride 111 mEq/L (98-107); Glucose 107 mg/dL (70-105); Osmolality,Calculated 290 (280-300); Potassium 4.3 mEq/L (3.5-5.1); Sodium 139 mEq/L (136-145); eGFR For African Americans > 60 (> 60); eGFR For Non-African Americans > 60 (> 60)
[2020-08-22] MEDS: Gabapentin 400 MG CAPSULE PO SCH (07:27)
[2020-08-22] MEDS: Acetaminophen 325 MG TABLET PO PRN (07:28)
[2020-08-22] MEDS: Insulin LISPRO 300 UNITS/3 ML VIAL SUBQ SCH ×2 (07:28→11:42)
[2020-08-22 11:12] VITALS: BP 125/46
== END 2020-08-22 13:10 | disposition home or self-care (01) | DRG 24 ==
LOC: SAMDAY 06:03 → 2NNU 12:15
PROVIDERS: ADMIT Surgery Vascular Surgery; ATTEND Surgery Vascular Surgery

== ENCOUNTER 2021-05-02 23:40 | Inpatient (IN) ==
[2021-05-03] MEDS ORDERED: Ketorolac 30 MG/ML VIAL IVP ONE (01:24)
[2021-05-03] MEDS ORDERED: Acetaminophen 325 MG TABLET PO ONE (01:35)
[2021-05-03] MEDS ORDERED: Ondansetron 4 MG/2 ML VIAL IVP PRN ×2 (01:39→08:57)
[2021-05-03 02:09] LABS: Basophils # 0.1 K/mcL (0.0-0.2); Basophils % 0.2 %; Hematocrit 47.7 % (35.3-44.9); Hemoglobin 15.9 g/dL (11.5-15.4); Immature Granulocytes % 1.7 % (0-4); Lymphocytes % 4.9 %; Mean Corpuscular HGB Conc 33.3 g/dL (31.6-35.5); Mean Corpuscular Hemoglobin 31.8 pg (28.0-33.3); Mean Corpuscular Volume 95.4 fL (83.0-100.0); Mean Platelet Volume 10.8 fL (9.4-12.4); Monocytes # 1.6 K/mcL (0.0-1.3); Neutrophils # 17.3 K/mcL (1.6-8.9); Platelet Count 177 K/mcL (140-400); Red Cell Distribution Width 13.6 % (11.5-14.5); Segmented Neutrophils % 85.2 %; White Blood Count 20.3 K/mcL (4.3-11.1)
[2021-05-03 02:14] LABS: VBG HCO3 25 mEq/L (21-27); VBG PCO2 44 mmHg (41-51); VBG PH 7.36 pH Units (7.32-7.42); VBG PO2 41 mmHg (25-50)
[2021-05-03 02:30] LABS: Alanine Aminotransferase 11 Units/L (7-52); Albumin/Globulin Ratio 1.4 (1.1-2.2); Alkaline Phosphatase 61 Units/L (34-104); Aspartate Amino Transferase 9 Units/L (13-39); BUN/Creatinine Ratio 16 (6-26); Bilirubin,Total 0.8 mg/dL (0.3-1.0); Blood Urea Nitrogen 15 mg/dL (8-23); Calcium 11.4 mg/dL (8.6-10.3); Carbon Dioxide 23 mEq/L (23-29); Chloride 104 mEq/L (98-107); Globulin 2.8 g/dL (2.4-3.5); Glucose 203 mg/dL (70-105); Osmolality,Calculated 283 (280-300); Potassium 3.8 mEq/L (3.5-5.1); Sodium 133 mEq/L (136-145); Total Protein 6.8 g/dL (6.4-8.9); eGFR For African Americans > 60 (> 60); eGFR For Non-African Americans > 60 (> 60)
[2021-05-03 02:54] LABS: Adenovirus Not Detected (Not Detect); Bordetella Pertussis Not Detected (Not Detect); Chlamydophila pneumoniae Not Detected (Not Detect); Coronavirus 229E Not Detected (Not Detect); Coronavirus HKU1 Not Detected (Not Detect); Coronavirus NL63 Not Detected (Not Detect); Coronavirus OC43 Not Detected (Not Detect); Human Metapneumovirus Not Detected (Not Detect); Human Rhinovirus/Enterovirus Not Detected (Not Detect); Influenza A Subtype 2009 H1 Not Detected (Not Detect); Influenza B Not Detected (Not Detect); Mycoplasma pneumoniae Not Detected (Not Detect); Parainfluenza Virus 1 Not Detected (Not Detect); Parainfluenza Virus 2 Not Detected (Not Detect); Parainfluenza Virus 3 Not Detected (Not Detect); Parainfluenza Virus 4 Not Detected (Not Detect); Respiratory Syncytial Virus Not Detected (Not Detect); SARS-CoV-2 Not Detected (Not Detect)
[2021-05-03] MEDS ORDERED: Piperacillin/Tazobactam 3.375 GM in 0.9 % Sodium Chloride Mini Bag 100 ML IVPB ONE (03:15)
[2021-05-03] MEDS ORDERED: 0.9 % Sodium Chloride 1,000 ML IVC ONE ×2 (03:16→08:17)
[2021-05-03] MEDS ORDERED: Vancomycin 1,500 MG/265 ML IV.SOLN IVPB ONE (04:00)
[2021-05-03 06:58] LABS: Bilirubin,Urine Negative (Negative); Blood,Urine Negative (Negative); Clarity,Urine Clear (Clear); Color,Urine Light-Yellow (Yellow); Glucose,Urine (UA) >=1000 mg/dL (Normal); Ketones,Urine Trace mg/dL (Negative); Leukocyte Esterase,Urine Negative (Negative); Nitrite,Urine Negative (Negative); Protein,Urine Trace mg/dL (Neg-Trace); RBC,Urine 0-3 per hpf (0-3); Specific Gravity,Urine 1.027 (1.010-1.025); Squamous Epithelial Cell,Urine Few per hpf (None-Few); Urobilinogen,Urine Normal (Normal)
[2021-05-03] MEDS ORDERED: Isovue-370 500 ML BOTTLE IVP ONE ×2 (08:54→10:52)
[2021-05-03] MEDS ORDERED: Naloxone 0.4 MG/ML INJ IVP PRN (08:57)
[2021-05-03] MEDS ORDERED: D5% in Water 1,000 ML IVC PRN (09:09)
[2021-05-03] MEDS ORDERED: *HR* Dextrose 50 % in Water (Syg) 50 ML SYRINGE IVP PRN (09:09)
[2021-05-03] MEDS ORDERED: Dextrose Gel 15 GM/37.5 ML TUBE PO PRN ×2 (09:09)
[2021-05-03] MEDS: Piperacillin/Tazobactam 3.375 GM in 0.9 % Sodium Chloride Mini Bag 100 ML IVPB SCH ×2 (10:40→21:02)
[2021-05-03] MEDS: 0.9 % Sodium Chloride 1,000 ML IVC SCH ×2 (10:40→19:32)
[2021-05-03 12:07] LABS: Estimated Average Glucose 177 mg/dl; Hemoglobin A1C 7.8 %
[2021-05-03] MEDS: Insulin LISPRO 300 UNITS/3 ML VIAL SUBQ SCH ×3 (12:10→21:02)
[2021-05-03] MEDS: *HR* Heparin 5,000 UNIT/ML VIAL SQ SCH (21:01)
[2021-05-04] MEDS: *HR* Heparin 5,000 UNIT/ML VIAL SQ SCH ×3 (00:14→17:29)
[2021-05-04 02:10] LABS: Basophils % 0.1 %; Hematocrit 41.5 % (35.3-44.9); Immature Granulocytes % 0.8 % (0-4); Lymphocytes # 1.4 K/mcL (0.6-4.6); Lymphocytes % 9.6 %; Mean Corpuscular HGB Conc 31.6 g/dL (31.6-35.5); Mean Corpuscular Hemoglobin 30.8 pg (28.0-33.3); Mean Corpuscular Volume 97.6 fL (83.0-100.0); Mean Platelet Volume 11.4 fL (9.4-12.4); Monocytes # 0.6 K/mcL (0.0-1.3); Monocytes % 4.4 %; Neutrophils # 12.3 K/mcL (1.6-8.9); Platelet Count 157 K/mcL (140-400); Red Blood Count 4.25 M/mcL (3.82-4.97); Red Cell Distribution Width 13.7 % (11.5-14.5); Segmented Neutrophils % 85.1 %; White Blood Count 14.4 K/mcL (4.3-11.1)
[2021-05-04 02:11] LABS: Hemoglobin 13.1 g/dL (11.5-15.4)
[2021-05-04 02:21] LABS: BUN/Creatinine Ratio 29 (6-26); Blood Urea Nitrogen 19 mg/dL (8-23); Calcium 10.4 mg/dL (8.6-10.3); Carbon Dioxide 24 mEq/L (23-29); Chloride 110 mEq/L (98-107); Glucose 184 mg/dL (70-105); Magnesium 1.8 mg/dL (1.6-2.6); Osmolality,Calculated 287 (280-300); Phosphorous 2.7 mg/dL (2.7-4.5); Potassium 4.3 mEq/L (3.5-5.1); Sodium 135 mEq/L (136-145); eGFR For African Americans > 60 (> 60); eGFR For Non-African Americans > 60 (> 60)
[2021-05-04] MEDS: Piperacillin/Tazobactam 3.375 GM in 0.9 % Sodium Chloride Mini Bag 100 ML IVPB SCH ×4 (05:55→23:44)
[2021-05-04] MEDS: 0.9 % Sodium Chloride 1,000 ML IVC SCH (05:55)
[2021-05-04] MEDS: Gabapentin 400 MG CAPSULE PO SCH ×3 (08:05→22:16)
[2021-05-04] MEDS: Cholecalciferol (D-3) 1,000 UNIT (25MCG) TABLET PO SCH (08:06)
[2021-05-04] MEDS: lisinopriL 20 MG TABLET PO SCH (08:06)
[2021-05-04] MEDS: predniSONE 20 MG TABLET PO SCH (08:07)
[2021-05-04] MEDS: Cyanocobalamin (B-12) 1,000 MCG TABLET PO SCH (08:07)
[2021-05-04] MEDS: Aspirin Enteric Coated 81 MG Tablet PO SCH (08:07)
[2021-05-04] MEDS: Fluticasone Propionate Nasal 50 MCG/SPRAY BOTTLE NS SCH ×2 (08:08→22:21)
[2021-05-04] MEDS: Insulin LISPRO 300 UNITS/3 ML VIAL SUBQ SCH ×4 (08:37→22:22)
[2021-05-04] MEDS: Metoprolol XL (24 HR) Succ 50 MG TAB.ER.24H PO SCH (08:38)
[2021-05-04] MEDS ORDERED: Metoprolol XL (24 HR) Succ 50 MG TAB.ER.24H PO SCH (09:00)
[2021-05-04] MEDS: Tiotropium 10 INH DOSE IH SCH (10:50)
[2021-05-04] MEDS: Ipratropium/Albuterol Neb 3 ML IH SCH ×2 (10:50→20:02)
[2021-05-04] MEDS: Azithromycin 250 MG TABLET PO SCH (11:39)
[2021-05-05 03:24] LABS: Basophils % 0.2 %; Eosinophils # 0.1 K/mcL (0.0-0.6); Eosinophils % 0.5 %; Hematocrit 38.9 % (35.3-44.9); Hemoglobin 12.3 g/dL (11.5-15.4); Immature Granulocytes % 0.6 % (0-4); Lymphocytes # 2.6 K/mcL (0.6-4.6); Lymphocytes % 22.1 %; Mean Corpuscular HGB Conc 31.6 g/dL (31.6-35.5); Mean Corpuscular Hemoglobin 30.8 pg (28.0-33.3); Mean Corpuscular Volume 97.5 fL (83.0-100.0); Mean Platelet Volume 11.3 fL (9.4-12.4); Monocytes # 0.7 K/mcL (0.0-1.3); Monocytes % 6.1 %; Neutrophils # 8.2 K/mcL (1.6-8.9); Platelet Count 196 K/mcL (140-400); Red Blood Count 3.99 M/mcL (3.82-4.97); Red Cell Distribution Width 13.7 % (11.5-14.5); Segmented Neutrophils % 70.5 %; White Blood Count 11.7 K/mcL (4.3-11.1)
[2021-05-05 03:42] LABS: Alanine Aminotransferase 18 Units/L (7-52); Albumin 3.1 g/dL (3.5-5.7); Albumin/Globulin Ratio 1.2 (1.1-2.2); Alkaline Phosphatase 60 Units/L (34-104); Aspartate Amino Transferase 12 Units/L (13-39); BUN/Creatinine Ratio 33 (6-26); Bilirubin,Total 0.2 mg/dL (0.3-1.0); Blood Urea Nitrogen 31 mg/dL (8-23); Calcium 10.6 mg/dL (8.6-10.3); Carbon Dioxide 26 mEq/L (23-29); Chloride 110 mEq/L (98-107); Globulin 2.5 g/dL (2.4-3.5); Glucose 206 mg/dL (70-105); Osmolality,Calculated 301 (280-300); Potassium 4.5 mEq/L (3.5-5.1); Sodium 139 mEq/L (136-145); Total Protein 5.6 g/dL (6.4-8.9); eGFR For African Americans > 60 (> 60); eGFR For Non-African Americans > 60 (> 60)
[2021-05-05] MEDS: Piperacillin/Tazobactam 3.375 GM in 0.9 % Sodium Chloride Mini Bag 100 ML IVPB SCH ×3 (06:54→23:03)
[2021-05-05] MEDS: *HR* Heparin 5,000 UNIT/ML VIAL SQ SCH ×2 (06:56→16:50)
[2021-05-05] MEDS: Insulin LISPRO 300 UNITS/3 ML VIAL SUBQ SCH ×4 (07:25→23:02)
[2021-05-05] MEDS: lisinopriL 20 MG TABLET PO SCH (07:36)
[2021-05-05] MEDS: Cholecalciferol (D-3) 1,000 UNIT (25MCG) TABLET PO SCH (07:36)
[2021-05-05] MEDS: Aspirin Enteric Coated 81 MG Tablet PO SCH (07:36)
[2021-05-05] MEDS: *HR* HYDROcodone/Acet 7.5/325 mg TABLET PO PRN ×3 (07:37→23:00)
[2021-05-05] MEDS: Azithromycin 250 MG TABLET PO SCH (07:37)
[2021-05-05] MEDS: Gabapentin 400 MG CAPSULE PO SCH ×3 (07:37→22:59)
[2021-05-05] MEDS: Metoprolol XL (24 HR) Succ 50 MG TAB.ER.24H PO SCH (07:37)
[2021-05-05] MEDS: Cyanocobalamin (B-12) 1,000 MCG TABLET PO SCH (07:37)
[2021-05-05] MEDS: predniSONE 20 MG TABLET PO SCH (07:37)
[2021-05-05] MEDS: Ipratropium/Albuterol Neb 3 ML IH SCH (07:43)
[2021-05-05] MEDS: Tiotropium 10 INH DOSE IH SCH ×2 (08:48→11:59)
[2021-05-05] MEDS: Fluticasone Propionate Nasal 50 MCG/SPRAY BOTTLE NS SCH ×2 (08:49→23:01)
[2021-05-05] MEDS: Albuterol 2.5 MG/3 ML NEBULIZER IH SCH (20:23)
[2021-05-06 04:04] LABS: Basophils % 0.3 %; Eosinophils # 0.1 K/mcL (0.0-0.6); Eosinophils % 0.8 %; Hematocrit 40.2 % (35.3-44.9); Hemoglobin 12.9 g/dL (11.5-15.4); Lymphocytes # 3.3 K/mcL (0.6-4.6); Lymphocytes % 30.5 %; Mean Corpuscular HGB Conc 32.1 g/dL (31.6-35.5); Mean Corpuscular Volume 96.6 fL (83.0-100.0); Mean Platelet Volume 11.3 fL (9.4-12.4); Monocytes # 0.7 K/mcL (0.0-1.3); Monocytes % 6.2 %; Neutrophils # 6.5 K/mcL (1.6-8.9); Platelet Count 199 K/mcL (140-400); Red Blood Count 4.16 M/mcL (3.82-4.97); Red Cell Distribution Width 13.4 % (11.5-14.5); Segmented Neutrophils % 61.2 %; White Blood Count 10.6 K/mcL (4.3-11.1)
[2021-05-06 04:23] LABS: Alanine Aminotransferase 19 Units/L (7-52); Albumin 3.4 g/dL (3.5-5.7); Albumin/Globulin Ratio 1.3 (1.1-2.2); Alkaline Phosphatase 60 Units/L (34-104); Aspartate Amino Transferase 9 Units/L (13-39); BUN/Creatinine Ratio 36 (6-26); Bilirubin,Total 0.3 mg/dL (0.3-1.0); Blood Urea Nitrogen 31 mg/dL (8-23); Calcium 10.9 mg/dL (8.6-10.3); Carbon Dioxide 23 mEq/L (23-29); Chloride 106 mEq/L (98-107); Globulin 2.7 g/dL (2.4-3.5); Glucose 183 mg/dL (70-105); Osmolality,Calculated 291 (280-300); Sodium 135 mEq/L (136-145); Total Protein 6.1 g/dL (6.4-8.9); eGFR For African Americans > 60 (> 60); eGFR For Non-African Americans > 60 (> 60)
[2021-05-06] MEDS: *HR* Heparin 5,000 UNIT/ML VIAL SQ SCH (05:59)
[2021-05-06] MEDS: Piperacillin/Tazobactam 3.375 GM in 0.9 % Sodium Chloride Mini Bag 100 ML IVPB SCH (06:07)
[2021-05-06] MEDS: Insulin LISPRO 300 UNITS/3 ML VIAL SUBQ SCH (07:17)
[2021-05-06] MEDS: Tiotropium 10 INH DOSE IH SCH (08:10)
[2021-05-06] MEDS: Albuterol 2.5 MG/3 ML NEBULIZER IH SCH (08:10)
[2021-05-06] MEDS: Fluticasone Propionate Nasal 50 MCG/SPRAY BOTTLE NS SCH (08:30)
[2021-05-06] MEDS: Cyanocobalamin (B-12) 1,000 MCG TABLET PO SCH (08:37)
[2021-05-06] MEDS: Gabapentin 400 MG CAPSULE PO SCH (08:37)
[2021-05-06] MEDS: *HR* HYDROcodone/Acet 7.5/325 mg TABLET PO PRN (08:37)
[2021-05-06] MEDS: Metoprolol XL (24 HR) Succ 50 MG TAB.ER.24H PO SCH (08:37)
[2021-05-06] MEDS: lisinopriL 20 MG TABLET PO SCH (08:37)
[2021-05-06] MEDS: Cholecalciferol (D-3) 1,000 UNIT (25MCG) TABLET PO SCH (08:37)
[2021-05-06] MEDS: Aspirin Enteric Coated 81 MG Tablet PO SCH (08:37)
[2021-05-06] MEDS: Azithromycin 250 MG TABLET PO SCH (08:38)
[2021-05-06] MEDS: predniSONE 20 MG TABLET PO SCH (08:38)
[2021-05-06 10:42] VITALS: BP 167/76; PULSE 74; TEMP 97.5; O2SAT 94
== END 2021-05-06 10:52 | disposition home or self-care (01) | DRG 720 ==
LOC: EMEROOARM 23:40 → 3BNU 23:40
PROVIDERS: ADMIT Student in an Organized Health Care Education/Training Program; ATTEND Student in an Organized Health Care Education/Training Program